=== PATIENT | female | born 1975 | race American Indian/Alaskan Native ===

== ENCOUNTER 2016-12-08 13:23 | Emergency (ER) | payer BC, OTHER ==
--- NOTE | 2016-12-08 14:11 | EDM.PDOC ---
ED HPI GENERAL MEDICAL PROBLEM - General Chief Complaint: Neurological Problem Stated Complaint: PAINS AND NUMBNESS IN LEFT ARM Time Seen by Provider: 12/08/16 13:42 Source of Information: Reports: Patient History Limitations: Reports: No limitations - History of Present Illness INITIAL COMMENTS - FREE TEXT/NARRATIVE: HISTORY AND PHYSICAL: History of present illness: Patient is a 41-year-old obese female who presents to the emergency department with left hand numbness and tingling. She states she woke up this morning feeling that her call hand was tingly and "pins and needles". She has also noticed as the day has gone on that her whole left arm is feeling heavy and achy , especially around her tricep area. She wonders if it may be is because she has been shaking her hand and arm a lot because of these sensations. She denies any weakness. When she touches her skin she can feel it. She denies any head or neck pain. No chronic history of neck problems. She has migraines but hasn't had issues about for a long time. She takes medications for her headache as needed and then Celexa but nothing else. She has been told her blood pressures that high in the past and was supposed to be taking hydrochlorothiazide but often forgets to take it and now is not taking it at all. No chest pain or shortness of breath. No abdominal pain nausea or vomiting. No weakness or numbness or tingling in the lower extremities. She thinks she might have a UTI complains of some mild achiness but other than that nothing is out of the ordinary. No facial numbness or tingling and no symptoms in her right arm. Review of systems: As per history of present illness and below otherwise all systems reviewed and negative. Past medical history: As per history of present illness and as reviewed below otherwise noncontributory. Surgical history: As per history of present illness and as reviewed below otherwise noncontributory. Social history: No reported history of drug or alcohol abuse. Family history: As per history of present illness and as reviewed below otherwise noncontributory. Physical exam: HEENT: Atraumatic, normocephalic, pupils reactive, negative for conjunctival pallor or scleral icterus, mucous membranes moist, throat clear, neck supple, nontender, trachea midline. Lungs: Clear to auscultation, breath sounds equal bilaterally, chest nontender. Heart: S1S2, regular, negative for clicks, rubs, or JVD. Abdomen: Soft, nondistended, nontender. Negative for masses or hepatosplenomegaly. Negative for costovertebral tenderness. Pelvis: Stable nontender. Genitourinary: Deferred. Rectal: Deferred. Extremities: Atraumatic, negative for cords or calf pain. Neurovascular unremarkable. Neuro: Awake, alert, oriented. Cranial nerves II through XII unremarkable. Cerebellum unremarkable. Motor and sensory unremarkable throughout. Exam nonfocal. Diagnostics: EKG, CT, CBC, CMP, UA Impression: Left arm parasthesia Plan: Patient has no neck pain and no headache. She has no focal weakness or sensory deficits. Her blood pressure lowered significantly and was equal in both arms. Her symptoms are subjective but have not improved since being in the ED. I do not think these symptoms are related to a stroke or TIA. She will follow up with her primary care for further evaluation or return here for any significant change or worsening of her symptoms. Definitive disposition and diagnosis as appropriate pending reevaluation and review of above. - Related Data Allergies Allergy/AdvReac Type Severity Reaction Status Date / Time sulfamethoxazole Allergy Hives Verified 12/08/16 13:34 [From Bactrim] trimethoprim [From Bactrim] Allergy Hives Verified 12/08/16 13:34 contrast dye Allergy Rash Uncoded 12/08/16 13:35 Home Meds: Home Meds Citalopram [Celexa] 20 mg PO DAILY 06/19/16 [History] Naproxen [Naproxen] 0 mg PO ASDIRECTED PRN 06/19/16 [History] Past Medical History [employer] History: Reports: , Other (see below) Other OB/BYN History: ovarian cysts Neurological History: Reports: Migraines Psychiatric History: Reports: Anxiety Social & Family History - Family History Family Medical History: Noncontributory - Tobacco Use Smoking Status *Q: Current Every Day Smoker Years of Tobacco use: 13 Packs/Tins Daily: 1 - Recreational Drug Use Recreational Drug Use: No ED ROS GENERAL - Review of Systems Review Of Systems: ROS reveals no pertinent complaints other than HPI. ED EXAM, GENERAL - Physical Exam Exam: See Below (See history of present illness) Course - Vital Signs Last Recorded V/S: Last Vital Signs Temp 37.7 C 12/08/16 13:23 Pulse 88 12/08/16 13:23 Resp 18 12/08/16 13:23 BP 175/97 H 12/08/16 13:23 Pulse Ox 98 12/08/16 13:23 - Orders/Labs/Meds Orders: Active Orders 24 hr Category Date Time Status CULTURE URINE [RM] Stat Lab 12/08/16 16:15 Uncollected Labs: Laboratory Tests 12/08/16 12/08/16 12/08/16 Range/Units 14:09 14:09 14:09 WBC 9.00 (4.0-11.0) K/uL RBC 4.26 L (4.30-5.90) M/uL Hgb 12.5 (12.0-16.0) g/dL Hct 37.9 (36.0-46.0) % MCV 89.0 (80.0-98.0) fL MCH 29.3 (27.0-32.0) pg MCHC 33.0 (31.0-37.0) g/dL RDW Std Deviation 41.0 (28.0-62.0) fl RDW Coeff of Ty 13 (11.0-15.0) % Plt Count 244 (150-400) K/uL MPV 10.00 (7.40-12.00) fL Neut % (Auto) 59.8 (48.0-80.0) % Lymph % (Auto) 31.3 (16.0-40.0) % Wise % (Auto) 6.3 (0.0-15.0) % Eos % (Auto) 2.4 (0.0-7.0) % Baso % (Auto) 0.2 (0.0-1.5) % Neut # (Auto) 5.4 (1.4-5.7) K/uL Lymph # (Auto) 2.8 H (0.6-2.4) K/uL Wise # (Auto) 0.6 (0.0-0.8) K/uL Eos # (Auto) 0.2 (0.0-0.7) K/uL Baso # (Auto) 0.0 (0.0-0.1) K/uL Nucleated RBC % 0.0 /100WBC Nucleated RBCs # 0 K/uL Sodium 137 (136-146) mmol/L Potassium 3.9 (3.5-5.1) mmol/L Chloride 107 (98-110) mmol/L Carbon Dioxide 21 (21-31) mmol/L BUN 13 (6.0-23.0) mg/dL Creatinine 0.7 (0.6-1.5) mg/dL Est Cr Clr Drug Dosing 97.09 mL/min Estimated GFR (MDRD) > 60.0 ml/min Glucose 100 (60-110) mg/dL Calcium 8.9 (8.8-10.8) mg/dL Total Bilirubin 0.2 (0.1-1.5) mg/dL AST 11 (5-40) IU/L ALT 10 (8-54) IU/L Alkaline Phosphatase 79 (40-150) Total Protein 7.2 (6.0-8.0) g/dL Albumin 3.7 (3.5-5.0) g/dL Globulin 3.5 (2.0-3.5) g/dL Albumin/Globulin Ratio 1.1 L (1.3-2.8) HCG, Qual NEGATIVE (NEG) Urine Color Urine Appearance Urine pH (5.0-8.0) Ur Specific [place] (1.001-1.035) Urine Protein (NEGATIVE) mg/dL Urine Glucose (UA) (NEGATIVE) mg/dL Urine Ketones (NEGATIVE) mg/dL Urine Occult Blood (NEGATIVE) Urine Nitrite (NEGATIVE) Urine Bilirubin (NEGATIVE) Urine Urobilinogen (<2.0) EU/dL Ur Leukocyte Esterase (NEGATIVE) Urine RBC (0-2/HPF) Urine WBC (0-5/HPF) Ur Epithelial Cells (NONE-FEW) Amorphous Sediment (NEGATIVE) Urine Bacteria (NEGATIVE) 12/08/16 Range/Units 15:00 WBC (4.0-11.0) K/uL RBC (4.30-5.90) M/uL Hgb (12.0-16.0) g/dL Hct (36.0-46.0) % MCV (80.0-98.0) fL MCH (27.0-32.0) pg MCHC (31.0-37.0) g/dL RDW Std Deviation (28.0-62.0) fl RDW Coeff of Ty (11.0-15.0) % Plt Count (150-400) K/uL MPV (7.40-12.00) fL Neut % (Auto) (48.0-80.0) % Lymph % (Auto) (16.0-40.0) % Wise % (Auto) (0.0-15.0) % Eos % (Auto) (0.0-7.0) % Baso % (Auto) (0.0-1.5) % Neut # (Auto) (1.4-5.7) K/uL Lymph # (Auto) (0.6-2.4) K/uL Wise # (Auto) (0.0-0.8) K/uL Eos # (Auto) (0.0-0.7) K/uL Baso # (Auto) (0.0-0.1) K/uL Nucleated RBC % /100WBC Nucleated RBCs # K/uL Sodium (136-146) mmol/L Potassium (3.5-5.1) mmol/L Chloride (98-110) mmol/L Carbon Dioxide (21-31) mmol/L BUN (6.0-23.0) mg/dL Creatinine (0.6-1.5) mg/dL Est Cr Clr Drug Dosing mL/min Estimated GFR (MDRD) ml/min Glucose (60-110) mg/dL Calcium (8.8-10.8) mg/dL Total Bilirubin (0.1-1.5) mg/dL AST (5-40) IU/L ALT (8-54) IU/L Alkaline Phosphatase (40-150) Total Protein (6.0-8.0) g/dL Albumin (3.5-5.0) g/dL Globulin (2.0-3.5) g/dL Albumin/Globulin Ratio (1.3-2.8) HCG, Qual (NEG) Urine Color YELLOW Urine Appearance SLT CLOUDY Urine pH 5.5 (5.0-8.0) Ur Specific [place] 1.020 (1.001-1.035) Urine Protein NEGATIVE (NEGATIVE) mg/dL Urine Glucose (UA) NEGATIVE (NEGATIVE) mg/dL Urine Ketones NEGATIVE (NEGATIVE) mg/dL Urine Occult Blood TRACE-INTACT (NEGATIVE) Urine Nitrite NEGATIVE (NEGATIVE) Urine Bilirubin NEGATIVE (NEGATIVE) Urine Urobilinogen 0.2 (<2.0) EU/dL Ur Leukocyte Esterase SMALL (NEGATIVE) Urine RBC 0-2 (0-2/HPF) Urine WBC 1-3 (0-5/HPF) Ur Epithelial Cells FEW (NONE-FEW) Amorphous Sediment FEW (NEGATIVE) Urine Bacteria FEW (NEGATIVE) Departure - Departure Time of Disposition: 16:16 Disposition: Home, Self-Care 01 Condition: good Clinical Impression: Arm paresthesia, left Referrals: PCP,None [Primary Care Provider] - Forms: ED Department Discharge Additional Instructions: The following information is given to patients seen in the emergency department who are being discharged to home. This information is to outline your options for follow-up care. We provide all patients seen in our emergency department with a follow-up referral. The need for follow-up, as well as the timing and circumstances, are variable depending upon the specifics of your emergency department visit. If you don't have a primary care physician on staff, we will provide you with a referral. We always advise you to contact your personal physician following an emergency department visit to inform them of the circumstance of the visit and for follow-up with them and/or the need for any referrals to a consulting specialist. The emergency department will also refer you to a specialist when appropriate. This referral assures that you have the opportunity for follow-up care with a specialist. All of these measure are taken in an effort to provide you with optimal care, which includes your follow-up. Under all circumstances we always encourage you to contact your private physician who remains a resource for coordinating your care. When calling for follow-up care, please make the office aware that this follow-up is from your recent emergency room visit. If for any reason you are refused follow-up, please contact the [facility] Emergency Department at and asked to speak to the emergency department charge nurse. [facility] [address] [place] [address] - My Orders Last 24 Hours: My Active Orders 12/08/16 16:15 CULTURE URINE [RM] Stat - Assessment/Plan Last 24 Hours: My Active Orders 12/08/16 16:15 CULTURE URINE [RM] Stat
[2016-12-08 14:56] LABS: CHLORIDE,CL 107 mmol/L (98-110); SODIUM,NA 137 mmol/L (136-146)
--- NOTE | 2016-12-08 16:05 | CT ---
EXAMINATION: CT cervical spine HISTORY: Pain COMPARISON: None TECHNIQUE: Axial CT images obtained through the cervical spine without contrast. Coronal and sagitta l reconstructions obtained. FINDINGS: There is reversal of the normal cervical lordosis, likely positional. The vertebral body h eights and disc spaces appear well-maintained. There is no fracture or dislocation. Bone mineralizat ion is normal. No bulky cervical lymphadenopathy. IMPRESSION: No acute cervical spinal abnormality.
[2016-12-08 16:28] VITALS: BP 137/70
== END 2016-12-08 16:27 | disposition home or self-care (01) ==
LOC: MW.ED 13:23
DX: R20.9 Unspecified disturbances of skin sensation (principal); F41.9 Anxiety disorder, unspecified; F17.210 Nicotine dependence, cigarettes, uncomplicated; Z88.2 Allergy status to sulfonamides; Z88.1 Allergy status to other antibiotic agents; Z91.041 Radiographic dye allergy status
CPT/HCPCS: 36415; 72125; 72125-26; 80053; 81001; 84703; 85025; 87086; 93005; 99282; 99284-25

== ENCOUNTER 2017-06-23 18:10 | Emergency (ER) | payer BC, OTHER ==
[2017-06-23] MEDS ORDERED: cefTRIAXone 1,000 MG in Lidocaine 1% 4 ML IM ONE (18:49)
[2017-06-23] MEDS ORDERED: Sodium Chloride 0.9% 2.5 ML Syringe FLUSH PRN ×2 (18:49→20:18)
--- NOTE | 2017-06-23 18:49 | EDM.PDOC ---
ED HPI GENERAL MEDICAL PROBLEM - General Chief Complaint: Genitourinary Problem Stated Complaint: BLADDER INFECTION Time Seen by Provider: 06/23/17 18:47 Source of Information: Reports: Patient History Limitations: Reports: No Limitations - History of Present Illness INITIAL COMMENTS - FREE TEXT/NARRATIVE: HISTORY AND PHYSICAL: []Patient was seen at [facility] on Wed. 4 days ago and placed on Cipro and Pyridium for her UTI History of Present Illness: []Patient states that she is feeling worse she's having chills feeling weaker her bladder doesn't empty Review of Systems: As per history of present illness and below otherwise all systems reviewed and negative. Past medical history: As per history of present illness and as reviewed below otherwise noncontributory. Surgical history: As per history of present illness and as reviewed below otherwise noncontributory. Social history: No reported history of drug or alcohol abuse. Family history: As per history of present illness and as reviewed below otherwise noncontributory. Physical exam: Alert and oriented female answering questions appropriately. HEENT: Atraumatic, normocehpalic, pupils reactive, negative for conjunctival pallor or scleral icterus, mucous membranes moist, throat clear, neck supple, nontender, trachea midline. Lungs: Clear to auscultation, breath sounds equal bilaterally, chest non tender. Heart: S1S2, regular, negative for clicks, rubs, or JVD. Abdomen: Soft, nondistended, nontender. Negative for masses or hepatossplenmegaly. Positive for costovertebral tenderness. On the right. Pelvis: Stable nontender. Genitourinary: Deferred. Rectal: Deferred Extremities: Atraumatic, negative for cords or calf pain. Neurovascular unremarkable. Neuro: Awake, alert, oriented. Cranial nerves II through XII unremarkable. Cerebellum unremarkable. Motor and sensory unremarkable throughout. Exam nonfocal. Patient was scanned post void half hour and was found to have 165 miles of urine in the bladder. Pain that she is having is more than what I would expect for pyelonephritis and UTI. Discussed with patient my concerns and she has agreed to a abdominal pelvis CT scan rule out kidney stones Discussed with patient and family that no kidney stones are present there is a nonspecific small 0.6 cm nodule to her right lower lung. Because she is a smoker would recommend 6 months to a year follow-up CT scan. Diagnostics: [UA urine culture] Therapeutics: [Rocephin IV] Levaquin 750 by mouth Impression: [Early pyelonephritis with a UTI Incomplete emptying with voiding] Plan: [Placed on Levaquin 750 daily 10] Definitive disposition and diagnosis as appropriate pending reevaluation and review of above. flank area Pain Score (Numeric/FACES): 6 - Related Data Allergies Allergy/AdvReac Type Severity Reaction Status Date / Time sulfamethoxazole Allergy Hives Verified 06/23/17 19:20 [From Bactrim] trimethoprim [From Bactrim] Allergy Hives Verified 06/23/17 19:20 contrast dye Allergy Rash Uncoded 06/23/17 19:20 Home Meds: Home Meds Citalopram [Celexa] 20 mg PO DAILY 06/19/16 [History] Naproxen [Naproxen] 0 mg PO ASDIRECTED PRN 06/19/16 [History] Past Medical History [employer] History: Reports: , Other (See Below) Other OB/BYN History: ovarian cysts Neurological History: Reports: Migraines Psychiatric History: Reports: Anxiety Social & Family History - Family History Family Medical History: Noncontributory - Tobacco Use Smoking Status *Q: Current Every Day Smoker Years of Tobacco use: 13 Packs/Tins Daily: 1 - Recreational Drug Use Recreational Drug Use: No ED ROS GENERAL - Review of Systems Review Of Systems: ROS reveals no pertinent complaints other than HPI. ED EXAM, GI/ABD - Physical Exam Exam: See Below (See dictation) Course - Vital Signs Last Recorded V/S: Last Vital Signs Temp 36.4 C 06/23/17 21:00 Pulse 95 06/23/17 21:00 Resp 16 06/23/17 21:00 BP 140/72 06/23/17 21:00 Pulse Ox 98 06/23/17 21:00 - Orders/Labs/Meds Orders: Active Orders 24 hr Category Date Time Status Abdomen Pelvis w Cont [CT] Stat Exams 06/23/17 20:15 Stop Req Abdomen Pelvis wo Cont [CT] Stat Exams 06/23/17 20:19 Taken CULTURE URINE [RM] Stat Lab 06/23/17 18:44 Received Sodium Chloride 0.9% [Saline Flush] Med 06/23/17 18:49 Active 10 ml FLUSH ASDIRECTED PRN Sodium Chloride 0.9% [Saline Flush] Med 06/23/17 20:18 Active 10 ml FLUSH ASDIRECTED PRN Sodium Chloride 0.9% [Saline Flush] Med 06/23/17 18:49 Active 2.5 ml FLUSH ASDIRECTED PRN Sodium Chloride 0.9% [Saline Flush] Med 06/23/17 20:18 Active 2.5 ml FLUSH ASDIRECTED PRN Saline Lock Insert [OM.PC] Stat Oth 06/23/17 18:49 Ordered Saline Lock Insert [OM.PC] Stat Oth 06/23/17 20:18 Ordered Medication Orders Sodium Chloride (Saline Flush) 10 ml FLUSH ASDIRECTED PRN PRN Reason: Keep Vein Open Last Admin: 06/23/17 20:31 Dose: 10 ml Admin: 06/23/17 19:09 Dose: 10 ml Sodium Chloride (Saline Flush) 2.5 ml FLUSH ASDIRECTED PRN PRN Reason: Keep Vein Open Last Admin: 06/23/17 20:32 Dose: 2.5 ml Sodium Chloride (Saline Flush) 10 ml FLUSH ASDIRECTED PRN PRN Reason: Keep Vein Open Last Admin: 06/23/17 20:31 Dose: 10 ml Sodium Chloride (Saline Flush) 2.5 ml FLUSH ASDIRECTED PRN PRN Reason: Keep Vein Open Last Admin: 06/23/17 20:32 Dose: 2.5 ml Labs: Laboratory Tests 06/23/17 06/23/17 Range/Units 18:44 18:44 Urine Color ORANGE Urine Appearance SLT CLOUDY Urine pH 6.5 (5.0-8.0) Ur Specific [place] 1.010 (1.001-1.035) Urine Protein 100 (NEGATIVE) mg/dL Urine Glucose (UA) 250 H (NEGATIVE) mg/dL Urine Ketones NEGATIVE (NEGATIVE) mg/dL Urine Occult Blood TRACE-INTACT (NEGATIVE) Urine Nitrite POSITIVE H (NEGATIVE) Urine Bilirubin SMALL H (NEGATIVE) Urine Ictotest POSITIVE Urine Urobilinogen >=8.0 H (<2.0) EU/dL Ur Leukocyte Esterase MODERATE (NEGATIVE) Urine RBC 8-12 (0-2/HPF) Urine WBC 1-3 (0-5/HPF) Ur Epithelial Cells FEW (NONE-FEW) Urine Bacteria 1+ H (NEGATIVE) Urine HCG, Qual NEGATIVE (NEGATIVE) Meds: Medications Generic Name Dose Route Start Last Admin Trade Name Gail PRN Reason Stop Dose Admin Sodium Chloride 10 ml 06/23/17 18:49 06/23/17 20:31 Saline Flush FLUSH 10 ml ASDIRECTED PRN Administration Keep Vein Open Sodium Chloride 2.5 ml 06/23/17 18:49 06/23/17 20:32 Saline Flush FLUSH 2.5 ml ASDIRECTED PRN Administration Keep Vein Open Sodium Chloride 10 ml 06/23/17 20:18 06/23/17 20:31 Saline Flush FLUSH 10 ml ASDIRECTED PRN Administration Keep Vein Open Sodium Chloride 2.5 ml 06/23/17 20:18 06/23/17 20:32 Saline Flush FLUSH 2.5 ml ASDIRECTED PRN Administration Keep Vein Open Discontinued Medications Generic Name Dose Route Start Last Admin Trade Name Gail PRN Reason Stop Dose Admin Ceftriaxone Sodium 1,000 mg/ 4 mls @ 4 mls/sec 06/23/17 18:49 06/23/17 19:07 Lidocaine HCl IM 06/23/17 18:50 4 mls/sec ONETIME ONE Administration Sodium Chloride 1,000 mls @ 999 mls/hr 06/23/17 20:18 06/23/17 20:30 Normal Saline IV 06/23/17 21:18 999 mls/hr STAT ONE Administration Ketorolac Tromethamine 30 mg 06/23/17 20:18 06/23/17 20:30 Toradol IVPUSH 06/23/17 20:19 30 mg ONETIME ONE Administration Departure - Departure Time of Disposition: 22:05 Disposition: Home, Self-Care 01 Condition: Good Clinical Impression: UTI, Urinary tract infectious disease, Pyelonephritis - Discharge Information Referrals: PCP,None [Primary Care Provider] - Forms: ED Department Discharge Additional Instructions: The following information is given to patients seen in the emergency department who are being discharged to home. This information is to outline your options for follow-up care. We provide all patients seen in our emergency department with a follow-up referral. The need for follow-up, as well as the timing and circumstances, are variable depending upon the specifics of your emergency department visit. If you don't have a primary care physician on staff, we will provide you with a referral. We always advise you to contact your personal physician following an emergency department visit to inform them of the circumstance of the visit and for follow-up with them and/or the need for any referrals to a consulting specialist. The emergency department will also refer you to a specialist when appropriate. This referral assures that you have the opportunity for followup care with a specialist. All of these measure are taken in an effort to provide you with optimal care, which includes your followup. Under all circumstances we always encourage you to contact your private physician who remains a resource for coordinating your care. When calling for followup care, please make the office aware that this follow-up is from your recent emergency room visit. If for any reason you are refused follow-up, please contact the [facility] emergency department at and asked to speak to the emergency department charge nurse. Prescription for Levaquin is being given 750 mg one daily [address] Alvarez on Sunday for follow up rx written for leviquin 750mg - 1 daily for 10 DAYS because you are a smoker I would recomend you repeat te CT for pulmonary nodule in 6 months to a year - My Orders Last 24 Hours: My Active Orders 06/23/17 18:44 CULTURE URINE [RM] Stat 06/23/17 18:49 Sodium Chloride 0.9% [Saline Flush] 10 ml FLUSH ASDIRECTED PRN Sodium Chloride 0.9% [Saline Flush] 2.5 ml FLUSH ASDIRECTED PRN Saline Lock Insert [OM.PC] Stat 06/23/17 20:15 Abdomen Pelvis w Cont [CT] Stat 06/23/17 20:18 Sodium Chloride 0.9% [Saline Flush] 10 ml FLUSH ASDIRECTED PRN Sodium Chloride 0.9% [Saline Flush] 2.5 ml FLUSH ASDIRECTED PRN Saline Lock Insert [OM.PC] Stat 06/23/17 20:19 Abdomen Pelvis wo Cont [CT] Stat - Assessment/Plan Last 24 Hours: My Active Orders 06/23/17 18:44 CULTURE URINE [RM] Stat 06/23/17 18:49 Sodium Chloride 0.9% [Saline Flush] 10 ml FLUSH ASDIRECTED PRN Sodium Chloride 0.9% [Saline Flush] 2.5 ml FLUSH ASDIRECTED PRN Saline Lock Insert [OM.PC] Stat 06/23/17 20:15 Abdomen Pelvis w Cont [CT] Stat 06/23/17 20:18 Sodium Chloride 0.9% [Saline Flush] 10 ml FLUSH ASDIRECTED PRN Sodium Chloride 0.9% [Saline Flush] 2.5 ml FLUSH ASDIRECTED PRN Saline Lock Insert [OM.PC] Stat 06/23/17 20:19 Abdomen Pelvis wo Cont [CT] Stat
[2017-06-23] MEDS: Sodium Chloride 0.9% 10 ML Syringe FLUSH PRN ×2 (19:09→20:31)
[2017-06-23] MEDS ORDERED: Sodium Chloride 0.9% 1,000 ML IV ONE (20:18)
[2017-06-23] MEDS ORDERED: Sodium Chloride 0.9% 10 ML Syringe FLUSH PRN (20:18)
[2017-06-23] MEDS ORDERED: Ketorolac 30 MG/ML SDV IVPUSH ONE (20:18)
[2017-06-23 22:29] VITALS: BP 136/65
--- NOTE | 2017-06-25 11:12 | CT ---
EXAM DATE: 06/23/17 PATIENT'S AGE: 42 Patient: LAKIA ORNELAS Facility: [place], [place] Site . Site : 1975 Study: CT Abdomen/Pelvis [id number]/7/2017 9:39:20 PM Ordering Physician: Doctor Gaines Final Report: INDICATION: Bilateral flank pain for 1 week TECHNIQUE: CT abdomen and pelvis without contrast. COMPARISON: None FINDINGS: Lower chest: 0.6 cm pulmonary nodule in the right lower lobe. Liver: Unremarkable. Spleen: Unremarkable. Pancreas: Unremarkable. Gallbladder and bile ducts: Status postcholecystectomy. Adrenal glands: Unremarkable. Kidneys: Unremarkable. No kidney or ureteral stones and no hydronephrosis. GI tract: There are a few scattered colonic diverticula. No evidence for diverticulosis. The appendix is not visualized. Vascular structures: Unremarkable. Lymph nodes: Unremarkable. Miscellaneous: There are shotty lymph nodes within the right lower quadrant mesentery with surrounding mesenteric fat stranding. No free fluid. No free air or significant free fluid. Pelvic Organs: Unremarkable. Bones: Unremarkable for age. IMPRESSION: There are findings suggestive of mesenteric adenitis involving the right lower quadrant mesentery. No evidence for bowel wall thickening or free air. No nephrolithiasis. Right lower lobe pulmonary nodule. Followup per Fleischner society guidelines recommended, as listed below. Status post cholecystectomy. FLEISCHNER SOCIETY GUIDELINES - SOLID NODULES: SINGLE LOW RISK - nodule less than 6 mm: No routine follow-up. - nodule 6-8 mm: CT at 6-12 months, then consider CT at 18-24 months. - nodule greater than 8 mm: Consider CT at 3 months, PET/CT or tissue sampling. SINGLE HIGH RISK - nodule less than 6 mm: Optional CT at 12 months. - nodule 6-8 mm: CT at 6-12 months, then CT at 18-24 months. - nodule greater than 8 mm: Consider CT at 3 months, PET/CT or tissue sampling. MULTIPLE LOW RISK - nodule less than 6 mm: No routine follow-up. - nodule 6-8 mm: CT at 3-6 months, then consider CT at 18-24 months. - nodule greater than 8 mm: CT at 3-6 months, then consider CT at 18-24 months. MULTIPLE HIGH RISK - nodule less than 6 mm: Optional CT at 12 months. - nodule 6-8 mm: CT at 3-6 months, then at 18-24 months. - nodule greater than 8 mm: CT at 3-6 months, then at 18-24 months. Please note that all CT scans at this facility use dose modulation, iterative reconstruction, and/or weight-based dosing when appropriate to reduce radiation dose to as low as reasonably achievable. Dictated by Lakia Brantley MD @ Jun 23 2017 9:50PM (Electronic Signature) Report Signed by Proxy. MTDD
== END 2017-06-23 22:28 | disposition home or self-care (01) ==
LOC: MW.ED 18:10
DX: N12 Tubulo-interstitial nephritis, not specified as acute or chronic (principal); N39.0 Urinary tract infection, site not specified; F17.210 Nicotine dependence, cigarettes, uncomplicated; Z88.2 Allergy status to sulfonamides; Z88.1 Allergy status to other antibiotic agents
CPT/HCPCS: 51798; 74176; 81001; 81025; 87086; 96361; 96372; 96374; 99284; J0696; J1885; J7040; 99283

== ENCOUNTER 2017-06-24 19:06 | Emergency (ER) | payer BC, OTHER ==
[2017-06-24] MEDS ORDERED: Sodium Chloride 0.9% 2.5 ML Syringe FLUSH PRN (19:42)
[2017-06-24] MEDS ORDERED: Ketorolac 15 MG/ML SDV IVPUSH ONE (19:42)
[2017-06-24] MEDS ORDERED: Sodium Chloride 0.9% 10 ML Syringe FLUSH PRN (19:42)
[2017-06-24] MEDS ORDERED: Sodium Chloride 0.9% 1,000 ML IV ONE (19:45)
--- NOTE | 2017-06-24 20:03 | EDM.PDOC ---
ED HPI GENERAL MEDICAL PROBLEM - General Chief Complaint: Abdominal Pain Stated Complaint: IN PAIN Time Seen by Provider: 06/24/17 19:07 Source of Information: Reports: Patient History Limitations: Reports: No Limitations - History of Present Illness INITIAL COMMENTS - FREE TEXT/NARRATIVE: HISTORY AND PHYSICAL: History of present illness: [42-year-old female with a past medical history of cholecystectomy previously told she had high blood pressure but then told she could stop her medicine for that, recent urinary tract infection treated with Cipro seen last night in our emergency department complaining of persistent urinary symptoms. Urinalysis continued to be consistent with infection and CT was done to rule out stone which was negative. Patient states she has worsening lower abdominal pain and she continued to feel ill so she now return to the emergency department for reevaluation. She has had some intermittent fevers. Review of systems: As per history of present illness and below otherwise all systems reviewed and negative. Past medical history: As per history of present illness and as reviewed below otherwise noncontributory. Surgical history: As per history of present illness and as reviewed below otherwise noncontributory. Social history: No reported history of drug or alcohol abuse. Family history: As per history of present illness and as reviewed below otherwise noncontributory. Physical exam: Well-appearing patient no acute distress clear lungs regular rhythm no tachycardia. Patient with diffuse lower abdominal tenderness without guarding or rebound. Normal bowel sounds. No skin changes. No CVA tenderness HEENT: Atraumatic, normocephalic, pupils reactive, negative for conjunctival pallor or scleral icterus, mucous membranes moist, throat clear, neck supple, nontender, trachea midline. Lungs: Clear to auscultation, breath sounds equal bilaterally, chest nontender. Heart: S1S2, regular, negative for clicks, rubs, or JVD. Abdomen: Soft, nondistended, as above. Negative for masses or hepatosplenomegaly. Negative for costovertebral tenderness. Pelvis: Stable nontender. Genitourinary: Deferred. Rectal: Deferred. Extremities: Atraumatic, negative for cords or calf pain. Neurovascular unremarkable. Neuro: Awake, alert, oriented. Cranial nerves II through XII unremarkable. Cerebellum unremarkable. Motor and sensory unremarkable throughout. Exam nonfocal. Diagnostics: [CT abdomen and pelvis pending Abdominal laboratory workup pending] Therapeutics: [Toradol IV as well as IV fluids administered] Impression: [] Plan: [Patient with recent UTI for which she is being treated with Cipro. Given persistent symptoms after 5 days suspect possible Cipro failure. Will switch to Keflex. Patient also with which she perceives as worsening lower abdominal pain since yesterday. CT scan pending to rule out the need for further treatment. If unremarkable will switch to Keflex, follow pending urine culture and patient will follow up with her own doctor tomorrow. She agrees with outpatient follow- up and strict return precautions will be given on reevaluation prior to discharge patient sitting the edge of her bed well- appearing no acute distress smiling and comfortable. she is aware of all findings and will follow-up with her doctor tomorrow Definitive disposition and diagnosis as appropriate pending reevaluation and review of above. Bilateral Lower Abdominal Pain Score (Numeric/FACES): 7 - Related Data Allergies Allergy/AdvReac Type Severity Reaction Status Date / Time sulfamethoxazole Allergy Hives Verified 06/24/17 19:26 [From Bactrim] trimethoprim [From Bactrim] Allergy Hives Verified 06/24/17 19:26 contrast dye Allergy Rash Uncoded 06/24/17 19:26 Home Meds: Home Meds Citalopram [Celexa] 20 mg PO DAILY 06/19/16 [History] Naproxen [Naproxen] 0 mg PO ASDIRECTED PRN 06/19/16 [History] Cephalexin [Keflex] 500 mg PO QID 10 Days capsule 06/24/17 [Rx] Ciprofloxacin [IJD: Ciprofloxacin HCl] 500 mg PO BID 06/24/17 [History] Past Medical History HEENT History: Reports: None Cardiovascular History: Reports: Afib Respiratory History: Reports: None Gastrointestinal History: Reports: None Genitourinary History: Reports: None VIDEO SPECIALIST History: Reports: Endometriosis, , Other (See Below) Other OB/BYN History: ovarian cysts Musculoskeletal History: Reports: None Neurological History: Reports: Migraines Psychiatric History: Reports: Anxiety Endocrine/Metabolic History: Reports: None Hematologic History: Reports: None Immunologic History: Reports: None Oncologic (Cancer) History: Reports: None Dermatologic History: Reports: None - Infectious Disease History Infectious Disease History: Reports: Chicken Pox - Past Surgical History GI Surgical History: Reports: Appendectomy, Cholecystectomy Female Surgical History: Reports: Other (See Below) Other Female Surgeries/Procedures: ovarian laparoscopy Social & Family History - Family History Family Medical History: Noncontributory - Tobacco Use Smoking Status *Q: Current Every Day Smoker Years of Tobacco use: 13 Packs/Tins Daily: 1 - Caffeine Use Caffeine Use: Reports: Soda - Recreational Drug Use Recreational Drug Use: No ED ROS GENERAL - Review of Systems Review Of Systems: See Below (History of present illness) ED EXAM, GI/ABD - Physical Exam Exam: See Below (History of present illness) Course - Vital Signs Last Recorded V/S: Last Vital Signs Temp 36.6 C 06/24/17 21:33 Pulse 78 06/24/17 21:33 Resp 18 06/24/17 21:33 BP 140/82 06/24/17 21:33 Pulse Ox 98 06/24/17 21:33 - Orders/Labs/Meds Orders: Active Orders 24 hr Category Date Time Status Abdomen Pelvis w Cont [CT] Stat Exams 06/24/17 19:42 Taken Sodium Chloride 0.9% [Saline Flush] Med 06/24/17 19:42 Active 10 ml FLUSH ASDIRECTED PRN Sodium Chloride 0.9% [Saline Flush] Med 06/24/17 19:42 Active 2.5 ml FLUSH ASDIRECTED PRN Peripheral IV Insertion Adult [OM.PC] Stat Oth 06/24/17 19:42 Ordered Medication Orders Sodium Chloride (Saline Flush) 10 ml FLUSH ASDIRECTED PRN PRN Reason: Keep Vein Open Sodium Chloride (Saline Flush) 2.5 ml FLUSH ASDIRECTED PRN PRN Reason: Keep Vein Open Labs: Laboratory Tests 06/24/17 06/24/17 Range/Units 20:08 20:08 WBC 3.44 L (4.0-11.0) K/uL RBC 4.13 L (4.30-5.90) M/uL Hgb 12.2 (12.0-16.0) g/dL Hct 36.5 (36.0-46.0) % MCV 88.4 (80.0-98.0) fL MCH 29.5 (27.0-32.0) pg MCHC 33.4 (31.0-37.0) g/dL RDW Std Deviation 41.7 (28.0-62.0) fl RDW Coeff of Ty 13 (11.0-15.0) % Plt Count 187 (150-400) K/uL MPV 9.80 (7.40-12.00) fL Neut % (Auto) 45.0 L (48.0-80.0) % Lymph % (Auto) 40.7 H (16.0-40.0) % [place] % (Auto) 13.7 (0.0-15.0) % Eos % (Auto) 0.6 (0.0-7.0) % Baso % (Auto) 0.0 (0.0-1.5) % Neut # (Auto) 1.6 (1.4-5.7) K/uL Lymph # (Auto) 1.4 (0.6-2.4) K/uL [place] # (Auto) 0.5 (0.0-0.8) K/uL Eos # (Auto) 0.0 (0.0-0.7) K/uL Baso # (Auto) 0.0 (0.0-0.1) K/uL Nucleated RBC % 0.0 /100WBC Nucleated RBCs # 0 K/uL Sodium 137 (136-146) mmol/L Potassium 3.4 L (3.5-5.1) mmol/L Chloride 108 (98-110) mmol/L Carbon Dioxide 21 (21-31) mmol/L BUN 8 (6.0-23.0) mg/dL Creatinine 0.7 (0.6-1.5) mg/dL Est Cr Clr Drug Dosing 96.13 mL/min Estimated GFR (MDRD) > 60.0 ml/min Glucose 92 (60-110) mg/dL Calcium 8.5 L (8.8-10.8) mg/dL Total Bilirubin 0.2 (0.1-1.5) mg/dL AST 11 (5-40) IU/L ALT 9 (8-54) IU/L Alkaline Phosphatase 76 (40-150) Total Protein 6.8 (6.0-8.0) g/dL Albumin 3.3 L (3.5-5.0) g/dL Globulin 3.5 (2.0-3.5) g/dL Albumin/Globulin Ratio 0.9 L (1.3-2.8) Lipase 16 (7-80) U/L Meds: Medications Generic Name Dose Route Start Last Admin Trade Name Gail PRN Reason Stop Dose Admin Sodium Chloride 10 ml 06/24/17 19:42 Saline Flush FLUSH ASDIRECTED PRN Keep Vein Open Sodium Chloride 2.5 ml 06/24/17 19:42 Saline Flush FLUSH ASDIRECTED PRN Keep Vein Open Discontinued Medications Generic Name Dose Route Start Last Admin Trade Name Gail PRN Reason Stop Dose Admin Cephalexin 500 mg 06/24/17 22:41 Keflex PO 06/24/17 22:42 ONETIME ONE Diphenhydramine HCl 25 mg 06/24/17 20:21 06/24/17 20:27 Benadryl IVPUSH 06/24/17 20:22 25 mg ONETIME ONE Administration Sodium Chloride 1,000 mls @ 999 mls/hr 06/24/17 19:45 06/24/17 20:09 Normal Saline IV 06/24/17 20:45 999 mls/hr STAT ONE Administration Iopamidol 100 ml 06/24/17 21:15 06/24/17 21:16 Isovue Multipack-370 (76%) IVPUSH 06/24/17 21:16 100 ml ONETIME STA Administration Ketorolac Tromethamine 15 mg 06/24/17 19:42 06/24/17 20:09 Toradol IVPUSH 06/24/17 19:43 15 mg ONETIME ONE Administration Methylprednisolone Sodium Succinate 125 mg 06/24/17 20:22 06/24/17 20:27 Solu-Medrol IVPUSH 06/24/17 20:23 125 mg ONETIME ONE Administration Departure - Departure Time of Disposition: 22:35 Disposition: Home, Self-Care 01 Condition: Good Clinical Impression: Mesenteric adenitis, Nodule of right lung, Hypertension, Abdominal pain Urinary tract infection Qualifiers: Urinary tract infection type: acute cystitis Hematuria presence: without hematuria Qualified Code(s): N30.00 - Acute cystitis without hematuria - Discharge Information Prescriptions: Cephalexin [Keflex] 500 mg PO QID 10 Days capsule Instructions: Abdominal Pain, Adult, [id number] Referrals: PCP,None [Primary Care Provider] - Forms: ED Department Discharge Additional Instructions: As discussed your antibiotic for urinary tract infection has been changed to Keflex because of your persistent symptoms on the previous antibiotic. finish Keflex as prescribed. The 6 mm lung nodule visualized on your previous imaging was shown to be calcified and consistent with a lung granuloma. Follow-up with your DrPrice to discuss this diagnosis and whether repeat imaging with another chest x-ray in the future is indicated. your blood pressure was elevated today with a systolicpressure of 160. Follow-up with your Dr. to discuss whether your hydrochlorothiazide should be reinitiated as treatment for essential hypertension. Your CAT scan showed that you have a small area of mesenteric adenitis. As we discussed this refers to inflammation of lymph nodes in the abdomen. This is a nonspecific finding and no further workup or treatment is indicated at this time. Take Motrin and Tylenol as needed for any discomfort and follow-up with your DrPrice for reevaluation in the next one to 2 days and to discuss the need for further workup as needed. Return immediately for new severe or worsening symptoms - My Orders Last 24 Hours: My Active Orders 06/24/17 19:42 Abdomen Pelvis w Cont [CT] Stat Sodium Chloride 0.9% [Saline Flush] 10 ml FLUSH ASDIRECTED PRN Sodium Chloride 0.9% [Saline Flush] 2.5 ml FLUSH ASDIRECTED PRN Peripheral IV Insertion Adult [OM.PC] Stat - Assessment/Plan Last 24 Hours: My Active Orders 06/24/17 19:42 Abdomen Pelvis w Cont [CT] Stat Sodium Chloride 0.9% [Saline Flush] 10 ml FLUSH ASDIRECTED PRN Sodium Chloride 0.9% [Saline Flush] 2.5 ml FLUSH ASDIRECTED PRN Peripheral IV Insertion Adult [OM.PC] Stat
[2017-06-24] MEDS ORDERED: diphenhydrAMINE 50 MG/ML SDV IVPUSH ONE (20:21)
[2017-06-24] MEDS ORDERED: methylPREDNISolone Sodium Succinate 125 MG/2 ML SDV IVPUSH ONE (20:22)
[2017-06-24 20:41] LABS: CHLORIDE,CL 108 mmol/L (98-110); SODIUM,NA 137 mmol/L (136-146)
[2017-06-24] MEDS ORDERED: Iopamidol 755 MG/ML 500 ML Multipack Bottle IVPUSH STA (21:15)
[2017-06-24] MEDS ORDERED: Cephalexin 500 MG Cap PO ONE (22:41)
[2017-06-24 22:58] VITALS: BP 140/76
--- NOTE | 2017-06-25 11:55 | CT ---
EXAM DATE: 06/24/17 PATIENT'S AGE: 42 Patient: DAXA ORNELAS Facility: [place], [place] Site . Site : 1975 Study: CT Abdomen/Pelvis [id number]/8/2017 9:14:56 PM Ordering Physician: Juan Alberto Villatoro Final Report: INDICATION: CONSISTENT RLQ ABD PAIN X1 WEEK, WORSENING, H/O APPENDECTOMY 2005, CHOLECYSTECTOMY 15+ YRS AGO HISTORY: Abdominal pain. COMPARISON: CT of the abdomen and pelvis 06/23/2017. TECHNIQUE: CT of the abdomen and pelvis. 100 cc of Isovue-300 IV. Coronal/sagittal reconstruction images. FINDINGS: Lung bases: There is no pleural or pericardial effusion. The heart size is normal. Calcified granuloma at the right lung base on image 17, series 201. This is stable from previous. There is no basilar pneumothorax. Abdomen/pelvis: No solid hepatic mass. Cholecystectomy. No dilation of intrahepatic biliary radicals. No perihepatic ascites. Spleen size is normal. No adrenal mass. No hydronephrosis. No perinephric inflammatory changes. No pancreatic mass or pancreatic duct dilation. Urinary bladder is normal. No suspicious adnexal mass. Uterine corpus is within normal limits. There is colonic diverticulosis. There are no findings for diverticulitis. There is a ventral wall abdominal hernia containing fat on image 59. No enteric compromise. There is fat stranding present within the right lower quadrant, which is similar to previous. This is seen best on series 201, image 88. No drainable fluid collection. No small bowel or colonic obstruction. No abdominal aortic aneurysm. Visceral artery branches are patent. No abdominal or pelvic lymphadenopathy by size criteria. The bone windows demonstrate no suspicious lytic or blastic bone lesions. The alignment is preserved. IMPRESSION: 1. Stable fat stranding in the right lower quadrant, with numerous nonenlarged mesenteric lymph nodes. As indicated previously, this could represent mesenteric adenitis. No associated enteric wall thickening or small bowel/ colonic obstruction. The region of fat stranding measures 3.5 x 3.0 cm in AP and transverse dimension. 2. No drainable fluid collection. 3. By report, the patient is post appendectomy. 4. Cholecystectomy. Normal caliber biliary tree. 5. Right lower lobe pulmonary nodule appears calcified, and consistent with a granuloma. Dictated by Scott Reynaga MD @ 06/24/2017 9:45:23 PM Dictated by: Scott Reynaga MD @ 06/24/2017 21:45:33 (Electronic Signature) Report Signed by Proxy. MTDD
== END 2017-06-24 22:59 | disposition home or self-care (01) ==
LOC: MW.ED 19:06
DX: I88.0 Nonspecific mesenteric lymphadenitis (principal); N30.00 Acute cystitis without hematuria; R91.1 Solitary pulmonary nodule; I10 Essential (primary) hypertension; F17.210 Nicotine dependence, cigarettes, uncomplicated; Z88.2 Allergy status to sulfonamides; Z88.1 Allergy status to other antibiotic agents; Z79.899 Other long term (current) drug therapy
CPT/HCPCS: 36415; 74177; 80053; 83690; 85025; 96361; 96374; 96375; 99284; A9270; J1200; J1885; J2930; J7040; Q9967; 99283

== ENCOUNTER 2019-04-25 18:20 | Emergency (ER) | payer BC ==
[2019-04-25] MEDS ORDERED: Ketorolac 60 MG/2 ML SDV IM ONE (18:52)
--- NOTE | 2019-04-25 18:59 | EDM.PDOC ---
ED HPI GENERAL MEDICAL PROBLEM - General Chief Complaint: Back Pain or Injury Stated Complaint: lower back pain Time Seen by Provider: 04/25/19 18:34 Source of Information: Reports: Patient History Limitations: Reports: No Limitations - History of Present Illness INITIAL COMMENTS - FREE TEXT/NARRATIVE: History of present illness: []Patient has had 3-5 years of sciatic pain and has been going to a chiropractor regularly gets her almost 3 weeks of relief. Someone had told her that she needs to see a doctor for this pain so she saw a physician at the [facility] who did plain film x-rays of her back and started her on prednisone, Flexeril and Tylenol. He took her off the Naprosyn while she is on the prednisone. She now has worse pain. Denies any incontinence, numbness or tingling or falls. She should try to follow up with her doctor however is not available. Review of systems: As per history of present illness and below otherwise all systems reviewed and negative. Past medical history: As per history of present illness and as reviewed below otherwise noncontributory. Surgical history: As per history of present illness and as reviewed below otherwise noncontributory. Social history: No reported history of drug or alcohol abuse. Family history: As per history of present illness and as reviewed below otherwise noncontributory. Physical exam: General: Well developed, well nourished in NAD HEENT: Atraumatic, normocephalic, pupils reactive, negative for conjunctival pallor or scleral icterus, mucous membranes moist, throat clear, neck supple, nontender, trachea midline. Lungs: Clear to auscultation, breath sounds equal bilaterally, chest nontender. Heart: S1S2, regular, negative for clicks, rubs, or JVD. Abdomen: NABS, Soft, nondistended, nontender. Negative for masses or hepatosplenomegaly. Negative for costovertebral tenderness. Pelvis: Stable nontender. Genitourinary: Deferred. Rectal: Deferred. Extremities: Atraumatic, negative for cords or calf pain. Neurovascular unremarkable. Neuro: Awake, alert, oriented. Cranial nerves II through XII unremarkable. Cerebellum unremarkable. Motor and sensory unremarkable throughout. Exam nonfocal. Skin:warm and dry Diagnostics: None Therapeutics: Toradol IM ED Course: Stable Impression: Chronic right-sided sciatica Prescriptions: None Plan: Ice pack 20 minutes at a time, walk frequently, go home Definitive disposition and diagnosis as appropriate pending reevaluation and review of above. Lower Back Pain Score (Numeric/FACES): 7 - Related Data Allergies Allergy/AdvReac Type Severity Reaction Status Date / Time sulfamethoxazole Allergy Hives Verified 04/25/19 18:32 [From Bactrim] trimethoprim [From Bactrim] Allergy Hives Verified 04/25/19 18:32 contrast dye Allergy Rash Uncoded 04/25/19 18:32 Home Meds: Home Meds Citalopram [Celexa] 20 mg PO DAILY 06/19/16 [History] Naproxen 0 mg PO ASDIRECTED PRN 06/19/16 [History] Cyclobenzaprine HCl 10 mg PO TID PRN 04/25/19 [History] hydroCHLOROthiazide [Hydrochlorothiazide] 25 mg PO DAILY 04/25/19 [History] predniSONE [Prednisone] 10 mg PO ASDIRECTED 04/25/19 [History] Past Medical History - Past Health History Medical/Surgical History: Denies Medical/Surgical History HEENT History: Reports: None Cardiovascular History: Reports: Afib Respiratory History: Reports: None Gastrointestinal History: Reports: None Genitourinary History: Reports: None CLINICAL 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 ANESTHESIOLOGIST History: Reports: Endometriosis, , Other (See Below) Other CLINICAL STAFF ANESTHESIOLOGIST History: ovarian cysts Musculoskeletal History: Reports: None Neurological History: Reports: Migraines Psychiatric History: Reports: Anxiety Endocrine/Metabolic History: Reports: None Hematologic History: Reports: None Immunologic History: Reports: None Oncologic (Cancer) History: Reports: None Dermatologic History: Reports: None - Infectious Disease History Infectious Disease History: Reports: Chicken Pox - Past Surgical History GI Surgical History: Reports: Appendectomy, Cholecystectomy Female Surgical History: Reports: Other (See Below) Other Female Surgeries/Procedures: ovarian laparoscopy Social & Family History - Family History Family Medical History: Noncontributory - Tobacco Use Smoking Status *Q: Never Smoker - Caffeine Use Caffeine Use: Reports: Soda - Recreational Drug Use Recreational Drug Use: No ED ROS GENERAL - Review of Systems Review Of Systems: See Below ED EXAM, GI/ABD - Physical Exam Exam: See Below (See history of present illness) Course - Vital Signs Last Recorded V/S: Last Vital Signs Temp 97.5 F 04/25/19 18:30 Pulse 111 H 04/25/19 18:30 Resp 18 04/25/19 18:30 BP 171/105 H 04/25/19 18:30 Pulse Ox 96 04/25/19 18:30 - Orders/Labs/Meds Meds: Medications Discontinued Medications Generic Name Dose Route Start Last Admin Trade Name Gail PRN Reason Stop Dose Admin Ketorolac Tromethamine 60 mg 04/25/19 18:52 Toradol IM 04/25/19 18:53 ONETIME ONE Departure - Departure Time of Disposition: 18:56 Disposition: Home, Self-Care 01 Condition: Good Clinical Impression: Chronic right-sided low back pain with sciatica Qualifiers: Sciatica laterality: sciatica of right side Qualified Code(s): M54.41 - Lumbago with sciatica, right side; G89.29 - Other chronic pain - Discharge Information *PRESCRIPTION DRUG MONITORING PROGRAM REVIEWED*: No *COPY OF PRESCRIPTION DRUG MONITORING REPORT IN PATIENT [place]: No Referrals: PCP,None [Primary Care Provider] - Additional Instructions: The following information is given to patients seen in the emergency department who are being discharged to home. This information is to outline your options for follow-up care. We provide all patients seen in our emergency department with a follow-up referral. The need for follow-up, as well as the timing and circumstances, are variable depending upon the specifics of your emergency department visit. If you don't have a primary care physician on staff, we will provide you with a referral. We always advise you to contact your personal physician following an emergency department visit to inform them of the circumstance of the visit and for follow-up with them and/or the need for any referrals to a consulting specialist. The emergency department will also refer you to a specialist when appropriate. This referral assures that you have the opportunity for follow-up care with a specialist. All of these measure are taken in an effort to provide you with optimal care, which includes your follow-up. Under all circumstances we always encourage you to contact your private physician who remains a resource for coordinating your care. When calling for follow-up care, please make the office aware that this follow-up is from your recent emergency room visit. If for any reason you are refused follow-up, please contact the [facility] Emergency Department at and asked to speak to the emergency department charge nurse. Ice pack 20 minutes at a time as frequently as possible, walk as much as possible Take meds as directed, follow up with your primary care physician, return to ER if symptoms worsen or change. [facility] [address] [place] [id number]
[2019-04-25 19:32] VITALS: BP 174/100; PULSE 89
== END 2019-04-25 19:32 | disposition home or self-care (01) ==
LOC: MW.ED 18:20
DX: M54.41 Lumbago with sciatica, right side (principal); Z90.49 Acquired absence of other specified parts of digestive tract; Z79.899 Other long term (current) drug therapy; Z88.1 Allergy status to other antibiotic agents
CPT/HCPCS: 96372; 99283; J1885

== ENCOUNTER 2019-05-29 13:03 | Emergency (ER) | payer BC ==
[2019-05-29] MEDS ORDERED: Sodium Chloride 0.9% 2.5 ML Syringe FLUSH PRN (13:12)
[2019-05-29] MEDS ORDERED: Sodium Chloride 0.9% 10 ML Syringe FLUSH PRN (13:12)
--- NOTE | 2019-05-29 13:52 | CR ---
INDICATION: Chest palpitations TECHNIQUE: Chest radiograph 1 view COMPARISON: None FINDINGS: Moderate degradation of image quality noted due to body habitus. Mediastinum: The mediastinum is normal in appearance. The heart silhouette is normal in size and morphology. Lung: Both lungs are unremarkable in appearance. No sign of pleural effusion seen. No pneumothorax is identified. IMPRESSION: 1. No acute cardiopulmonary disease is seen. Dictated by Frederick Sales MD @ 05/29/2019 1:49:33 PM Dictated by: Frederick Sales MD @ 05/29/2019 13:49:37 (Electronically Signed)
[2019-05-29 14:26] LABS: BLOOD UREA NITROGEN,BUN 20 mg/dL (7.0-18.0); CARBON DIOXIDE,CO2 28.3 mmol/L (21.0-32.0); CHLORIDE,CL 99 mmol/L (98-107); GLUCOSE RANDOM 98 mg/dL (74-106); POTASSIUM,K 3.1 mmol/L (3.5-5.1); SODIUM,NA 138 mmol/L (136-145)
[2019-05-29] MEDS ORDERED: Potassium Chloride 20 MEQ Tab.ER PO ONE (14:35)
--- NOTE | 2019-05-29 14:39 | EDM.PDOC ---
ED HPI GENERAL MEDICAL PROBLEM - General Chief Complaint: Chest Pain Stated Complaint: CHEST DISCOMFORT Time Seen by Provider: 05/29/19 13:07 Source of Information: Reports: Patient History Limitations: Reports: No Limitations - History of Present Illness INITIAL COMMENTS - FREE TEXT/NARRATIVE: History of present illness: []Patient has had intermittent chest palpitations since yesterday. Heart is skipping a beat and that every time it happens she feels like she has to burp. Chest pain, shortness of breath, dizziness or syncope. She feels excessively stressed with her mom having stage IV breast cancer, back pain and anxiety. Review of systems: As per history of present illness and below otherwise all systems reviewed and negative. Past medical history: As per history of present illness and as reviewed below otherwise noncontributory. Surgical history: As per history of present illness and as reviewed below otherwise noncontributory. Social history: No reported history of drug or alcohol abuse. Family history: As per history of present illness and as reviewed below otherwise noncontributory. Physical exam: General: Well developed, well nourished in NAD HEENT: Atraumatic, normocephalic, pupils reactive, negative for conjunctival pallor or scleral icterus, mucous membranes moist, throat clear, neck supple, nontender, trachea midline. Lungs: Clear to auscultation, breath sounds equal bilaterally, chest nontender. Heart: S1S2, regular, negative for clicks, rubs, or JVD. Abdomen: NABS, Soft, nondistended, nontender. Negative for masses or hepatosplenomegaly. Negative for costovertebral tenderness. Pelvis: Stable nontender. Genitourinary: Deferred. Rectal: Deferred. Extremities: Atraumatic, negative for cords or calf pain. Neurovascular unremarkable. Neuro: Awake, alert, oriented. Cranial nerves II through XII unremarkable. Cerebellum unremarkable. Motor and sensory unremarkable throughout. Exam nonfocal. Skin:warm and dry Diagnostics: CBC chemistry-calcium 3.1 EKG, monitor-showing intermittent PVCs correlating with her symptoms Therapeutics: Potassium ED Course: Stable Impression: Hypokalemia, PVCs Prescriptions: None Plan: follow up with your primary care physician, return to ER if symptoms worsen or change. Definitive disposition and diagnosis as appropriate pending reevaluation and review of above. Chest Pain Score (Numeric/FACES): 3 - Related Data Allergies Allergy/AdvReac Type Severity Reaction Status Date / Time sulfamethoxazole Allergy Hives Verified 05/29/19 13:11 [From Bactrim] trimethoprim [From Bactrim] Allergy Hives Verified 05/29/19 13:11 contrast dye Allergy Rash Uncoded 05/29/19 13:11 Home Meds: Home Meds Citalopram [Celexa] 20 mg PO DAILY 06/19/16 [History] Naproxen 0 mg PO ASDIRECTED PRN 06/19/16 [History] Cyclobenzaprine HCl 10 mg PO TID PRN 04/25/19 [History] hydroCHLOROthiazide [Hydrochlorothiazide] 25 mg PO DAILY 04/25/19 [History] Past Medical History - Past Health History Medical/Surgical History: Denies Medical/Surgical History HEENT History: Reports: None Cardiovascular History: Reports: None Respiratory History: Reports: None Gastrointestinal History: Reports: None Genitourinary History: Reports: None BUSINESS SYSTEMS LEAD History: Reports: Endometriosis, , Other (See Below) Other BUSINESS SYSTEMS LEAD History: ovarian cysts Musculoskeletal History: Reports: None Neurological History: Reports: Migraines Psychiatric History: Reports: Anxiety Endocrine/Metabolic History: Reports: None Hematologic History: Reports: None Immunologic History: Reports: None Oncologic (Cancer) History: Reports: None Dermatologic History: Reports: None - Infectious Disease History Infectious Disease History: Reports: Chicken Pox - Past Surgical History GI Surgical History: Reports: Appendectomy, Cholecystectomy Female Surgical History: Reports: Other (See Below) Other Female Surgeries/Procedures: ovarian laparoscopy Social & Family History - Family History Family Medical History: Noncontributory - Tobacco Use Smoking Status *Q: Current Every Day Smoker Years of Tobacco use: 15 Packs/Tins Daily: 0.5 - Caffeine Use Caffeine Use: Reports: Soda - Recreational Drug Use Recreational Drug Use: No ED ROS GENERAL - Review of Systems Review Of Systems: See Below ED EXAM, GENERAL - Physical Exam Exam: See Below Course - Vital Signs Last Recorded V/S: Last Vital Signs Temp Pulse 92 05/29/19 13:14 Resp 18 05/29/19 13:08 BP 158/80 H 05/29/19 13:14 Pulse Ox 99 05/29/19 13:08 - Orders/Labs/Meds Orders: Active Orders 24 hr Category Date Time Status Cardiac Monitoring [RC] . DIRECTED Care 05/29/19 13:12 Active EKG Documentation Completion [RC] STAT Care 05/29/19 13:12 Active Sodium Chloride 0.9% [Saline Flush] Med 05/29/19 13:12 Active 10 ml FLUSH ASDIRECTED PRN Sodium Chloride 0.9% [Saline Flush] Med 05/29/19 13:12 Active 2.5 ml FLUSH ASDIRECTED PRN Saline Lock Insert [OM.PC] Stat Oth 05/29/19 13:12 Ordered Medication Orders Sodium Chloride (Saline Flush) 10 ml FLUSH ASDIRECTED PRN PRN Reason: Keep Vein Open Sodium Chloride (Saline Flush) 2.5 ml FLUSH ASDIRECTED PRN PRN Reason: Keep Vein Open Labs: Laboratory Tests 05/29/19 05/29/19 Range/Units 13:45 13:45 WBC 9.24 (4.0-11.0) K/uL RBC 4.48 (4.30-5.90) M/uL Hgb 13.5 (12.0-16.0) g/dL Hct 40.0 (36.0-46.0) % MCV 89.3 (80.0-98.0) fL MCH 30.1 (27.0-32.0) pg MCHC 33.8 (31.0-37.0) g/dL RDW Std Deviation 43.4 (28.0-62.0) fl RDW Coeff of Ty 13 (11.0-15.0) % Plt Count 312 (150-400) K/uL MPV 9.70 (7.40-12.00) fL Neut % (Auto) 60.6 (48.0-80.0) % Lymph % (Auto) 31.1 (16.0-40.0) % Yell % (Auto) 6.6 (0.0-15.0) % Eos % (Auto) 1.6 (0.0-7.0) % Baso % (Auto) 0.1 (0.0-1.5) % Neut # (Auto) 5.6 (1.4-5.7) K/uL Lymph # (Auto) 2.9 H (0.6-2.4) K/uL Yell # (Auto) 0.6 (0.0-0.8) K/uL Eos # (Auto) 0.2 (0.0-0.7) K/uL Baso # (Auto) 0.0 (0.0-0.1) K/uL Nucleated RBC % 0.0 /100WBC Nucleated RBCs # 0 K/uL Sodium 138 (136-145) mmol/L Potassium 3.1 L (3.5-5.1) mmol/L Chloride 99 (98-107) mmol/L Carbon Dioxide 28.3 (21.0-32.0) mmol/L BUN 20 H (7.0-18.0) mg/dL Creatinine 0.8 (0.6-1.0) mg/dL Est Cr Clr Drug Dosing 83.27 mL/min Estimated GFR (MDRD) > 60.0 ml/min Glucose 98 (74-106) mg/dL Calcium 9.9 (8.5-10.1) mg/dL Total Bilirubin 0.2 (0.2-1.0) mg/dL AST 12 L (15-37) IU/L ALT 15 (14-63) IU/L Alkaline Phosphatase 83 (46-116) U/L Total Protein 7.7 (6.4-8.2) g/dL Albumin 3.5 (3.4-5.0) g/dL Globulin 4.2 H (2.6-4.0) g/dL Albumin/Globulin Ratio 0.8 L (0.9-1.6) Meds: Medications Generic Name Dose Route Start Last Admin Trade Name Freq PRN Reason Stop Dose Admin Sodium Chloride 10 ml 05/29/19 13:12 Saline Flush FLUSH ASDIRECTED PRN Keep Vein Open Sodium Chloride 2.5 ml 05/29/19 13:12 Saline Flush FLUSH ASDIRECTED PRN Keep Vein Open Discontinued Medications Generic Name Dose Route Start Last Admin Trade Name Freq PRN Reason Stop Dose Admin Potassium Chloride 40 meq 05/29/19 14:35 Klor-Con M20 PO 05/29/19 14:36 ONETIME ONE Departure - Departure Time of Disposition: 14:38 Disposition: Home, Self-Care 01 Condition: Good Clinical Impression: PVCs (premature ventricular contractions), Hypokalemia Referrals: PCP,Unobtain [Primary Care Provider] - Forms: ED Department Discharge Additional Instructions: The following information is given to patients seen in the emergency department who are being discharged to home. This information is to outline your options for follow-up care. We provide all patients seen in our emergency department with a follow-up referral. The need for follow-up, as well as the timing and circumstances, are variable depending upon the specifics of your emergency department visit. If you don't have a primary care physician on staff, we will provide you with a referral. We always advise you to contact your personal physician following an emergency department visit to inform them of the circumstance of the visit and for follow-up with them and/or the need for any referrals to a consulting specialist. The emergency department will also refer you to a specialist when appropriate. This referral assures that you have the opportunity for follow-up care with a specialist. All of these measure are taken in an effort to provide you with optimal care, which includes your follow-up. Under all circumstances we always encourage you to contact your private physician who remains a resource for coordinating your care. When calling for follow-up care, please make the office aware that this follow-up is from your recent emergency room visit. If for any reason you are refused follow-up, please contact the [facility] Emergency Department at and asked to speak to the emergency department charge nurse. follow up with your primary care physician, return to ER if symptoms worsen or change. [facility] Primary Care [address] [place] [id number] - My Orders Last 24 Hours: My Active Orders 05/29/19 13:12 Cardiac Monitoring [RC] . DIRECTED EKG Documentation Completion [RC] STAT Sodium Chloride 0.9% [Saline Flush] 10 ml FLUSH ASDIRECTED PRN Sodium Chloride 0.9% [Saline Flush] 2.5 ml FLUSH ASDIRECTED PRN Saline Lock Insert [OM.PC] Stat - Assessment/Plan Last 24 Hours: My Active Orders 05/29/19 13:12 Cardiac Monitoring [RC] . DIRECTED EKG Documentation Completion [RC] STAT Sodium Chloride 0.9% [Saline Flush] 10 ml FLUSH ASDIRECTED PRN Sodium Chloride 0.9% [Saline Flush] 2.5 ml FLUSH ASDIRECTED PRN Saline Lock Insert [OM.PC] Stat
[2019-05-29 15:12] VITALS: BP 147/81; PULSE 87
== END 2019-05-29 15:12 | disposition home or self-care (01) ==
LOC: MW.ED 13:03
DX: I49.3 Ventricular premature depolarization (principal); E87.6 Hypokalemia; F41.9 Anxiety disorder, unspecified; F17.210 Nicotine dependence, cigarettes, uncomplicated; Z88.2 Allergy status to sulfonamides; Z91.041 Radiographic dye allergy status; Z88.1 Allergy status to other antibiotic agents; Z79.899 Other long term (current) drug therapy
CPT/HCPCS: 36415; 71045; 80053; 85025; 93005; 99285; A9270

== ENCOUNTER 2019-07-15 20:32 | Emergency (ER) | payer BC ==
[2019-07-15] MEDS ORDERED: Sodium Chloride 0.9% 1,000 ML IV ONE (20:33)
--- NOTE | 2019-07-15 20:35 | EDM.PDOC ---
ED HPI GENERAL MEDICAL PROBLEM - General Stated Complaint: HEART PALPITATION Time Seen by Provider: 07/15/19 20:34 Source of Information: Reports: Patient - History of Present Illness INITIAL COMMENTS - FREE TEXT/NARRATIVE: HISTORY AND PHYSICAL: History of present illness: [Patient with history of anxiety history of PVC presents with palpitation], she is in no distress no chest pain no radiation arm neck or jaw no shortness breath or dizziness no fever nausea vomiting chills sweats no bowel or urine symptoms Symptoms began one hour prior review of systems: As per history of present illness and below otherwise all systems reviewed and negative. Past medical history: As per history of present illness and as reviewed below otherwise noncontributory. Surgical history: As per history of present illness and as reviewed below otherwise noncontributory. Social history: No reported history of drug or alcohol abuse. Family history: As per history of present illness and as reviewed below otherwise noncontributory. Physical exam: HEENT: Atraumatic, normocephalic, pupils reactive, negative for conjunctival pallor or scleral icterus, mucous membranes moist, throat clear, neck supple, nontender, trachea midline. Lungs: Clear to auscultation, breath sounds equal bilaterally, chest nontender. Heart: S1S2, regular, negative for clicks, rubs, or JVD. Abdomen: Soft, nondistended, nontender. Negative for masses or hepatosplenomegaly. Negative for costovertebral tenderness. Pelvis: Stable nontender. Genitourinary: Deferred. Rectal: Deferred. Extremities: Atraumatic, negative for cords or calf pain. Neurovascular unremarkable. Neuro: Awake, alert, oriented. Cranial nerves II through XII unremarkable. Cerebellum unremarkable. Motor and sensory unremarkable throughout. Exam nonfocal. Diagnostics: [CBC CMP UA troponin EKG Chest 1 view ] Therapeutics: [ normal saline ]K-Dur 20 milliequivalents by mouth now Increase potassium to 2 times daily for 3 days follow-up with primary care consider changing hydrochlorothiazide for another medication with primary Impression History of PVC Hypokalemia at 3.1 anxiety about health Chronic history of baseline Definitive disposition and diagnosis as appropriate pending reevaluation and review of above. - Related Data Allergies Allergy/AdvReac Type Severity Reaction Status Date / Time sulfamethoxazole Allergy Hives Verified 07/15/19 20:40 [From Bactrim] trimethoprim [From Bactrim] Allergy Hives Verified 07/15/19 20:40 contrast dye Allergy Rash Uncoded 07/15/19 20:40 Home Meds: Home Meds Citalopram [Celexa] 20 mg PO DAILY 06/19/16 [History] Naproxen 0 mg PO ASDIRECTED PRN 06/19/16 [History] Cyclobenzaprine HCl 10 mg PO TID PRN 04/25/19 [History] hydroCHLOROthiazide [Hydrochlorothiazide] 25 mg PO DAILY 04/25/19 [History] Potassium Chloride 20 meq PO DAILY 07/15/19 [History] Past Medical History - Past Health History Medical/Surgical History: Denies Medical/Surgical History HEENT History: Reports: None Cardiovascular History: Reports: None Respiratory History: Reports: None Gastrointestinal History: Reports: None Genitourinary History: Reports: None 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, , Other (See Below) Other CHIP APPLYING MACHINE TENDER History: ovarian cysts Musculoskeletal History: Reports: None Neurological History: Reports: Migraines Psychiatric History: Reports: Anxiety Endocrine/Metabolic History: Reports: None Hematologic History: Reports: None Immunologic History: Reports: None Oncologic (Cancer) History: Reports: None Dermatologic History: Reports: None - Infectious Disease History Infectious Disease History: Reports: Chicken Pox - Past Surgical History GI Surgical History: Reports: Appendectomy, Cholecystectomy Female Surgical History: Reports: Other (See Below) Other Female Surgeries/Procedures: ovarian laparoscopy Social & Family History - Family History Family Medical History: Noncontributory - Caffeine Use Caffeine Use: Reports: Soda ED ROS GENERAL - Review of Systems Review Of Systems: See Below ED EXAM, GENERAL - Physical Exam Exam: See Below Course - Vital Signs Last Recorded V/S: Last Vital Signs Temp 97.0 F 07/15/19 20:38 Pulse 114 H 07/15/19 20:38 Resp 18 07/15/19 20:38 BP 155/90 H 07/15/19 20:38 Pulse Ox 99 07/15/19 20:38 - Orders/Labs/Meds Orders: Active Orders 24 hr Category Date Time Status EKG Documentation Completion [RC] STAT Care 07/15/19 20:34 Active DRUG SCREEN, URINE [URCHEM] Stat Lab 07/15/19 20:34 Ordered UA RFX SACHIN AND CULT IF INDIC [URIN] Stat Lab 07/15/19 20:34 Ordered Sodium Chloride 0.9% [Normal Saline] 1,000 ml Med 07/15/19 20:33 Active IV STAT Medication Orders Sodium Chloride (Normal Saline) 1,000 mls @ 999 mls/hr IV STAT ONE Stop: 07/15/19 21:33 Last Admin: 07/15/19 20:45 Dose: 999 mls/hr Labs: Laboratory Tests 07/15/19 07/15/19 Range/Units 20:40 20:40 WBC 11.21 H (4.0-11.0) K/uL RBC 4.41 (4.30-5.90) M/uL Hgb 13.4 (12.0-16.0) g/dL Hct 39.5 (36.0-46.0) % MCV 89.6 (80.0-98.0) fL MCH 30.4 (27.0-32.0) pg MCHC 33.9 (31.0-37.0) g/dL RDW Std Deviation 42.4 (28.0-62.0) fl RDW Coeff of Ty 13 (11.0-15.0) % Plt Count 301 (150-400) K/uL MPV 10.10 (7.40-12.00) fL Neut % (Auto) 61.5 (48.0-80.0) % Lymph % (Auto) 29.7 (16.0-40.0) % [place] % (Auto) 6.8 (0.0-15.0) % Eos % (Auto) 1.8 (0.0-7.0) % Baso % (Auto) 0.2 (0.0-1.5) % Neut # (Auto) 6.9 H (1.4-5.7) K/uL Lymph # (Auto) 3.3 H (0.6-2.4) K/uL [place] # (Auto) 0.8 (0.0-0.8) K/uL Eos # (Auto) 0.2 (0.0-0.7) K/uL Baso # (Auto) 0.0 (0.0-0.1) K/uL Nucleated RBC % 0.0 /100WBC Nucleated RBCs # 0 K/uL Sodium 137 (136-145) mmol/L Potassium 3.1 L (3.5-5.1) mmol/L Chloride 100 (98-107) mmol/L Carbon Dioxide 25.3 (21.0-32.0) mmol/L BUN 15 (7.0-18.0) mg/dL Creatinine 0.8 (0.6-1.0) mg/dL Est Cr Clr Drug Dosing 82.43 mL/min Estimated GFR (MDRD) > 60.0 ml/min Glucose 116 H (74-106) mg/dL Calcium 9.0 (8.5-10.1) mg/dL Total Bilirubin 0.2 (0.2-1.0) mg/dL AST 10 L (15-37) IU/L ALT 12 L (14-63) IU/L Alkaline Phosphatase 89 (46-116) U/L Troponin I < 0.050 (0.000-0.056) ng/mL Total Protein 8.1 (6.4-8.2) g/dL Albumin 3.8 (3.4-5.0) g/dL Globulin 4.3 H (2.6-4.0) g/dL Albumin/Globulin Ratio 0.9 (0.9-1.6) Meds: Medications Generic Name Dose Route Start Last Admin Trade Name Freq PRN Reason Stop Dose Admin Sodium Chloride 1,000 mls @ 999 mls/hr 07/15/19 20:33 07/15/19 20:45 Normal Saline IV 07/15/19 21:33 999 mls/hr STAT ONE Administration Discontinued Medications Generic Name Dose Route Start Last Admin Trade Name Freq PRN Reason Stop Dose Admin Lorazepam 1 mg 07/15/19 20:51 Ativan IVPUSH 07/15/19 20:52 ONETIME ONE Potassium Chloride 20 meq 07/15/19 21:22 Klor-Con M20 PO 07/15/19 21:23 ONETIME ONE Departure - Departure Time of Disposition: 21:27 Disposition: Home, Self-Care 01 Condition: Good Clinical Impression: Hypokalemia - Discharge Information Referrals: PCP,None [Primary Care Provider] - Additional Instructions: Continue potassium 20 mEq twice daily for 3 days Follow-up with primary care and recheck potassium Consider blood pressure medication change with your primary care [facility] - Primary Care [address] [place] [id number] The following information is given to patients seen in the emergency department who are being discharged to home. This information is to outline your options for follow-up care. We provide all patients seen in our emergency department with a follow-up referral. The need for follow-up, as well as the timing and circumstances, are variable depending upon the specifics of your emergency department visit. If you don't have a primary care physician on staff, we will provide you with a referral. We always advise you to contact your personal physician following an emergency department visit to inform them of the circumstance of the visit and for follow-up with them and/or the need for any referrals to a consulting specialist. The emergency department will also refer you to a specialist when appropriate. This referral assures that you have the opportunity for follow-up care with a specialist. All of these measure are taken in an effort to provide you with optimal care, which includes your follow-up. Under all circumstances we always encourage you to contact your private physician who remains a resource for coordinating your care. When calling for follow-up care, please make the office aware that this follow-up is from your recent emergency room visit. If for any reason you are refused follow-up, please contact the [facility] emergency department at and asked to speak to the emergency department charge nurse. - My Orders Last 24 Hours: My Active Orders 07/15/19 20:33 Sodium Chloride 0.9% [Normal Saline] 1,000 ml IV STAT 07/15/19 20:34 EKG Documentation Completion [RC] STAT DRUG SCREEN, URINE [URCHEM] Stat UA RFX SACHIN AND CULT IF INDIC [URIN] Stat - Assessment/Plan Last 24 Hours: My Active Orders 07/15/19 20:33 Sodium Chloride 0.9% [Normal Saline] 1,000 ml IV STAT 07/15/19 20:34 EKG Documentation Completion [RC] STAT DRUG SCREEN, URINE [URCHEM] Stat UA RFX SACHIN AND CULT IF INDIC [URIN] Stat
[2019-07-15] MEDS ORDERED: LORazepam 2 MG/ML SDV IVPUSH ONE (20:51)
--- NOTE | 2019-07-15 21:04 | CR ---
INDICATION: heart palpitations TECHNIQUE: Chest 1 view. COMPARISON: None. FINDINGS: Cardiovascular and mediastinum: Heart size and vasculature are normal in caliber and appearance. Mediastinum is within normal limits. Lungs and pleural space: Lungs are clear. No sign of infiltrate or mass. No sign of pleural effusion. No pneumothorax. Bones and soft tissues: No significant findings. IMPRESSION: Unremarkable chest. Dictated by: Frederick Huynh MD @ 07/15/2019 21:01:47 (Electronically Signed)
[2019-07-15 21:11] LABS: BLOOD UREA NITROGEN,BUN 15 mg/dL (7.0-18.0); CARBON DIOXIDE,CO2 25.3 mmol/L (21.0-32.0); CHLORIDE,CL 100 mmol/L (98-107); GLUCOSE RANDOM 116 mg/dL (74-106); POTASSIUM,K 3.1 mmol/L (3.5-5.1); SODIUM,NA 137 mmol/L (136-145)
[2019-07-15] MEDS ORDERED: Potassium Chloride 20 MEQ Tab.ER PO ONE (21:22)
[2019-07-15 22:07] VITALS: BP 147/76; PULSE 85
== END 2019-07-15 22:08 | disposition home or self-care (01) ==
LOC: MW.ED 20:32
DX: E87.6 Hypokalemia (principal); F41.9 Anxiety disorder, unspecified; Z86.79 Personal history of other diseases of the circulatory system; Z88.1 Allergy status to other antibiotic agents; Z88.2 Allergy status to sulfonamides; Z91.041 Radiographic dye allergy status
CPT/HCPCS: 36415; 71045; 80053; 84484; 85025; 93005; 96360; 99285; A9270; J7040; 99283

== ENCOUNTER 2019-08-10 14:37 | Emergency (ER) | payer BC ==
[2019-08-10] MEDS ORDERED: Sodium Chloride 0.9% 10 ML SDV IV PRN (14:54)
[2019-08-10] MEDS ORDERED: Sodium Chloride 0.9% 10 ML Syringe FLUSH PRN (14:54)
[2019-08-10] MEDS ORDERED: Sodium Chloride 0.9% 2.5 ML Syringe FLUSH PRN (14:54)
--- NOTE | 2019-08-10 14:59 | EDM.PDOC ---
ED HPI GENERAL MEDICAL PROBLEM - General Chief Complaint: Cardiovascular Problem Stated Complaint: HEART PALPITATIONS Time Seen by Provider: 08/10/19 14:43 - History of Present Illness INITIAL COMMENTS - FREE TEXT/NARRATIVE: HISTORY AND PHYSICAL: History of present illness: Patient's 44-year-old female presents with a concern of palpitations she's been having these since May has been seen by her doctor and in the ER she was found in the low potassium at one point she underwent potassium supplementation her hydrochlorothiazide that she was on at the time was continued eventually both were stopped when she had a normal electrolyte panel 1 week prior. She has had thyroid studies were unremarkable and she is slated to see a corsetier in the near future. Patient was noted to have a unifocal PVC while on the monitor ER there but no runs and this was an isolated single event. Patient is a smoker. Review of systems: As per history of present illness and below otherwise all systems reviewed and negative. Past medical history: As per history of present illness and as reviewed below otherwise noncontributory. Surgical history: As per history of present illness and as reviewed below otherwise noncontributory. Social history: No reported history of drug or alcohol abuse. Family history: As per history of present illness and as reviewed below otherwise noncontributory. Physical exam: HEENT: Atraumatic, normocephalic, pupils reactive, negative for conjunctival pallor or scleral icterus, mucous membranes moist, throat clear, neck supple, nontender, trachea midline. Lungs: Clear to auscultation, breath sounds equal bilaterally, chest nontender. Heart: S1S2, regular, negative for clicks, rubs, or JVD. Abdomen: Soft, nondistended, nontender. Negative for masses or hepatosplenomegaly. Negative for costovertebral tenderness. Pelvis: Stable nontender. Genitourinary: Deferred. Rectal: Deferred. Extremities: Atraumatic, negative for cords or calf pain. Neurovascular unremarkable. Neuro: Awake, alert, oriented. Cranial nerves II through XII unremarkable. Cerebellum unremarkable. Motor and sensory unremarkable throughout. Exam nonfocal. Diagnostics: CBC CMP and troponin PT/INR chest x-ray EKG Therapeutics: teletypesetter monitor Impression: #1 palpitations Definitive disposition and diagnosis as appropriate pending reevaluation and review of above. Middle Back Pain Score (Numeric/FACES): 4 - Related Data Allergies Allergy/AdvReac Type Severity Reaction Status Date / Time sulfamethoxazole Allergy Hives Verified 08/10/19 14:46 [From Bactrim] trimethoprim [From Bactrim] Allergy Hives Verified 08/10/19 14:46 contrast dye Allergy Rash Uncoded 07/15/19 20:40 Home Meds: Home Meds Metoprolol Succinate [Toprol XL] 25 mg PO DAILY 08/10/19 [History] Past Medical History - Past Health History Medical/Surgical History: Denies Medical/Surgical History HEENT History: Reports: None Cardiovascular History: Reports: Other (See Below) Other Cardiovascular History: palpitations Respiratory History: Reports: None Gastrointestinal History: Reports: None Genitourinary History: Reports: None 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 HAND History: Reports: Endometriosis, , Other (See Below) Other SHAPER MACHINE HAND History: ovarian cysts Musculoskeletal History: Reports: None Neurological History: Reports: Migraines Psychiatric History: Reports: Anxiety Endocrine/Metabolic History: Reports: None Hematologic History: Reports: None Immunologic History: Reports: None Oncologic (Cancer) History: Reports: None Dermatologic History: Reports: None - Infectious Disease History Infectious Disease History: Reports: Chicken Pox - Past Surgical History GI Surgical History: Reports: Appendectomy, Cholecystectomy Female Surgical History: Reports: Other (See Below) Other Female Surgeries/Procedures: ovarian laparoscopy Social & Family History - Family History Family Medical History: Noncontributory - Tobacco Use Smoking Status *Q: Current Every Day Smoker Years of Tobacco use: 15 Packs/Tins Daily: 0.5 - Caffeine Use Caffeine Use: Reports: Soda - Recreational Drug Use Recreational Drug Use: No ED ROS GENERAL - Review of Systems Review Of Systems: Comprehensive ROS is negative, except as noted in HPI. ED EXAM, GENERAL - Physical Exam Exam: See Below (See dictation) Course - Vital Signs Last Recorded V/S: Last Vital Signs Temp 36.7 C 08/10/19 14:43 Pulse 94 08/10/19 14:43 Resp 18 08/10/19 14:43 BP 153/88 H 08/10/19 14:43 Pulse Ox 98 08/10/19 14:43 Departure - Departure Time of Disposition: 14:58 Disposition: Home, Self-Care 01 Condition: Good Clinical Impression: Palpitations Referrals: PCP,Unobtain [Primary Care Provider] - Additional Instructions: The following information is given to patients seen in the emergency department who are being discharged to home. This information is to outline your options for follow-up care. We provide all patients seen in our emergency department with a follow-up referral. The need for follow-up, as well as the timing and circumstances, are variable depending upon the specifics of your emergency department visit. If you don't have a primary care physician on staff, we will provide you with a referral. We always advise you to contact your personal physician following an emergency department visit to inform them of the circumstance of the visit and for follow-up with them and/or the need for any referrals to a consulting specialist. The emergency department will also refer you to a specialist when appropriate. This referral assures that you have the opportunity for followup care with a specialist. All of these measure are taken in an effort to provide you with optimal care, which includes your followup. Under all circumstances we always encourage you to contact your private physician who remains a resource for coordinating your care. When calling for followup care, please make the office aware that this follow-up is from your recent emergency room visit. If for any reason you are refused follow-up, please contact the [facility] emergency department at and asked to speak to the emergency department charge nurse. Continue current medicines stop smoking minimize caffeine antihistaminics decongestants as discussed follow-up cardiology as discussed and return as needed as discussed
[2019-08-10 15:22] LABS: BLOOD UREA NITROGEN,BUN 19 mg/dL (7.0-18.0); CARBON DIOXIDE,CO2 25.4 mmol/L (21.0-32.0); CHLORIDE,CL 104 mmol/L (98-107); GLUCOSE RANDOM 100 mg/dL (74-106); POTASSIUM,K 3.1 mmol/L (3.5-5.1); SODIUM,NA 139 mmol/L (136-145)
--- NOTE | 2019-08-10 15:38 | CR ---
HISTORY: Chest pain. TECHNIQUE: Portable frontal view the chest. COMPARISON: Chest x-ray 07/15/2019. FINDINGS: No airspace consolidation. No pleural effusion or pneumothorax. Pulmonary vasculature and cardiomediastinal silhouette are within normal limits. IMPRESSION: No cardiopulmonary abnormality. Dictated by Jt Arthur MD @ Aug 10 2019 3:37PM Signed by Dr. Jt Arthur @ Aug 10 2019 3:38PM
[2019-08-10 16:09] VITALS: BP 149/77; PULSE 68
== END 2019-08-10 16:07 | disposition home or self-care (01) ==
LOC: MW.ED 14:37
DX: R00.2 Palpitations (principal); F17.210 Nicotine dependence, cigarettes, uncomplicated; Z79.899 Other long term (current) drug therapy; Z91.041 Radiographic dye allergy status; Z88.1 Allergy status to other antibiotic agents; Z88.2 Allergy status to sulfonamides
CPT/HCPCS: 36415; 71045; 71045-26; 80053; 83735; 84484; 85025; 85610; 99285-25

== ENCOUNTER 2019-08-19 08:41 | Emergency (ER) | payer BC ==
[2019-08-19] MEDS ORDERED: Ondansetron 4 MG/2 ML SDV ONE (08:46)
[2019-08-19] MEDS ORDERED: Ondansetron 4 MG/2 ML SDV IVPUSH ONE (08:53)
[2019-08-19] MEDS ORDERED: Sodium Chloride 0.9% 2.5 ML Syringe FLUSH PRN (08:53)
[2019-08-19] MEDS ORDERED: Sodium Chloride 0.9% 10 ML Syringe FLUSH PRN (08:53)
[2019-08-19] MEDS ORDERED: Aspirin 81 MG Tab.Chew PO ONE (08:55)
[2019-08-19] MEDS ORDERED: Sodium Chloride 0.9% 1,000 ML IV ONE (08:55)
--- NOTE | 2019-08-19 08:59 | EDM.PDOC ---
ED HPI GENERAL MEDICAL PROBLEM - General Chief Complaint: Cardiovascular Problem Stated Complaint: HEART PALPATATIONS Time Seen by Provider: 08/19/19 08:47 - History of Present Illness INITIAL COMMENTS - FREE TEXT/NARRATIVE: HISTORY AND PHYSICAL: History of present illness: The patient is a 44-year-old female who has been seen in the emergency department every month for the last 5 months for chest pain and palpitations and who had a Zio monitor placed yesterday here at our hospital after seeing her primary at [facility] last week and presents with waking from sleep with palpitations irregular heartbeat sweating nausea and chest discomfort. She says that she has these palpitations and discomfort with irregular beats every day for the last 3-4 months and has been here in our emergency department for evaluation as well as with her provider. She is a smoker and had been drinking a lot of caffeine but has reduce caffeine intake. She says that last time she was here in our emergency department last month she was asleep and woke with similar symptoms and had a workup and was not admitted to the hospital. She says that her thyroid has been evaluated back in May and it was normal. She denies and is on oral control and does smoke cigarettes but denies drug use. She has no leg pain or swelling no abdominal complaints such as vomiting but did have an episode of diarrhea yesterday. She was nauseated on arrival here and diaphoretic and said the chest discomfort was diffuse and it feels like the beats and irregular beats that she is having are uncomfortable and hard. No upper respiratory symptoms. She does not take any medications prior to coming here. On my evaluation she does not really say there is one area of her chest discomfort but it is diffuse and it is more with the heart beating any regular beats that she is having. Again all of these symptoms are not new or different from her prior ED visits here. Review of systems: As per history of present illness and below otherwise all systems reviewed and negative. Past medical history: As per history of present illness and as reviewed below otherwise noncontributory. Surgical history: As per history of present illness and as reviewed below otherwise noncontributory. Social history: No reported history of drug or alcohol abuse. Family history: As per history of present illness and as reviewed below otherwise noncontributory. Physical exam: General: Well-developed well-nourished female who is nontoxic and vital signs were noted by me. Her heart rate on my evaluation varies from 89-105. She is no longer diaphoretic and she received Zofran prior to my arrival in the room. HEENT: Atraumatic, normocephalic, pupils reactive, negative for conjunctival pallor or scleral icterus, mucous membranes moist, throat clear, neck supple, nontender, trachea midline. As no thyromegaly or lymphadenopathy Lungs: Clear to auscultation, breath sounds equal bilaterally, chest nontender. Heart: S1S2, regular rhythm and slightly tachycardic rate on my evaluation as described above, no overt murmurs, negative for clicks, rubs, or JVD. Abdomen: Soft, nondistended, nontender. Negative for masses or hepatosplenomegaly. Negative for costovertebral tenderness. Pelvis: Stable nontender. Genitourinary: Deferred. Rectal: Deferred. Extremities: Atraumatic, negative for cords or calf pain. Neurovascular unremarkable. No pedal edema or leg asymmetry Neuro: Awake, alert, oriented. Cranial nerves II through XII unremarkable. Cerebellum unremarkable. Motor and sensory unremarkable throughout. Exam nonfocal. Diagnostics: EKG, which was compared to prior and unchanged, CBC CMP TSH troponin INR UA UCG CTA of the chest urine culture Therapeutics: IV IV fluids O2 monitor aspirin Zofran She does have a history of anxiety and depression. Currently in the ED the patient's vitals are stable and she is not tachycardic nor hypertensive. She is no longer nauseated and she has no chest discomfort or palpitations. She is aware of the need for the CTA of the chest in light of her risk factors. She states understanding and agreeable. She does state that she has gotten a rash in the past with contrast dye so I will give her Benadryl and solumedrol Patient is been stable here in the ED and sleeping. She has not been tachycardic but she tells me she is feeling he sees. I advised her to document all of today's events so that when they look at her monitor they will know and be able to correlate her symptoms of today with her monitor strips. I've also informed her of the right base lung nodule that needs follow-up in 3-6 months. She is also aware of the incidental UTI and I will place her on an antibiotic. Impression: Palpitations and chest pain, acute on chronic UTI Definitive disposition and diagnosis as appropriate pending reevaluation and review of above. chest Pain Score (Numeric/FACES): 4 - Related Data Allergies Allergy/AdvReac Type Severity Reaction Status Date / Time sulfamethoxazole Allergy Hives Verified 08/19/19 08:59 [From Bactrim] trimethoprim [From Bactrim] Allergy Hives Verified 08/19/19 08:59 contrast dye Allergy Rash Uncoded 08/19/19 08:59 Home Meds: Home Meds Metoprolol Succinate [Toprol XL] 25 mg PO DAILY 08/10/19 [History] Citalopram Hydrobromide [Celexa] 20 mg PO DAILY 08/19/19 [History] Cyclobenzaprine [Flexeril] 10 mg PO TID PRN 08/19/19 [History] Naproxen 500 mg PO DAILY 08/19/19 [History] Potassium Chloride [Klor-Con M20] 20 meq PO DAILY 08/19/19 [History] Past Medical History - Past Health History Medical/Surgical History: Denies Medical/Surgical History HEENT History: Reports: None Cardiovascular History: Reports: Other (See Below) Other Cardiovascular History: palpitations Respiratory History: Reports: None Gastrointestinal History: Reports: None Genitourinary History: Reports: None 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 DIRECTOR FINANCE History: Reports: Endometriosis, , Other (See Below) Other SENIOR DIRECTOR FINANCE History: ovarian cysts Musculoskeletal History: Reports: None Neurological History: Reports: Migraines Psychiatric History: Reports: Anxiety Endocrine/Metabolic History: Reports: None Hematologic History: Reports: None Immunologic History: Reports: None Oncologic (Cancer) History: Reports: None Dermatologic History: Reports: None - Infectious Disease History Infectious Disease History: Reports: Chicken Pox - Past Surgical History GI Surgical History: Reports: Appendectomy, Cholecystectomy Female Surgical History: Reports: Other (See Below) Other Female Surgeries/Procedures: ovarian laparoscopy Social & Family History - Family History Family Medical History: Noncontributory - Caffeine Use Caffeine Use: Reports: Soda ED ROS GENERAL - Review of Systems Review Of Systems: Comprehensive ROS is negative, except as noted in HPI. ED EXAM, GENERAL - Physical Exam Exam: See Below (See dictation) Course - Vital Signs Last Recorded V/S: Last Vital Signs Temp 37.0 C 08/19/19 11:40 Pulse 83 08/19/19 11:40 Resp 16 08/19/19 11:40 BP 148/77 H 08/19/19 11:40 Pulse Ox 96 08/19/19 11:40 - Orders/Labs/Meds Orders: Active Orders 24 hr Category Date Time Status Cardiac Monitoring [RC] . DIRECTED Care 08/19/19 08:53 Active EKG Documentation Completion [RC] STAT Care 08/19/19 08:53 Active Oxygen Therapy, ED [RC] ASDIRECTED Care 08/19/19 08:53 Active Pulse Oximetry [RC] ASDIRECTED Care 08/19/19 08:54 Active CULTURE URINE [RM] Stat Lab 08/19/19 09:58 Received Sodium Chloride 0.9% [Saline Flush] Med 08/19/19 08:53 Active 10 ml FLUSH ASDIRECTED PRN Sodium Chloride 0.9% [Saline Flush] Med 08/19/19 08:53 Active 2.5 ml FLUSH ASDIRECTED PRN Saline Lock Insert [OM.PC] Stat Oth 08/19/19 08:53 Ordered Medication Orders Sodium Chloride (Saline Flush) 10 ml FLUSH ASDIRECTED PRN PRN Reason: Keep Vein Open Sodium Chloride (Saline Flush) 2.5 ml FLUSH ASDIRECTED PRN PRN Reason: Keep Vein Open Labs: Laboratory Tests 08/19/19 08/19/19 08/19/19 Range/Units 08:50 08:50 08:50 WBC 11.56 H (4.0-11.0) K/uL RBC 4.45 (4.30-5.90) M/uL Hgb 13.6 (12.0-16.0) g/dL Hct 39.4 (36.0-46.0) % MCV 88.5 (80.0-98.0) fL MCH 30.6 (27.0-32.0) pg MCHC 34.5 (31.0-37.0) g/dL RDW Std Deviation 39.7 (28.0-62.0) fl RDW Coeff of Ty 13 (11.0-15.0) % Plt Count 312 (150-400) K/uL MPV 9.80 (7.40-12.00) fL Neut % (Auto) 74.9 (48.0-80.0) % Lymph % (Auto) 19.0 (16.0-40.0) % [place] % (Auto) 4.3 (0.0-15.0) % Eos % (Auto) 1.7 (0.0-7.0) % Baso % (Auto) 0.1 (0.0-1.5) % Neut # (Auto) 8.7 H (1.4-5.7) K/uL Lymph # (Auto) 2.2 (0.6-2.4) K/uL [place] # (Auto) 0.5 (0.0-0.8) K/uL Eos # (Auto) 0.2 (0.0-0.7) K/uL Baso # (Auto) 0.0 (0.0-0.1) K/uL INR 0.93 Sodium 138 (136-145) mmol/L Potassium 3.5 (3.5-5.1) mmol/L Chloride 103 (98-107) mmol/L Carbon Dioxide 22.3 (21.0-32.0) mmol/L BUN 15 (7.0-18.0) mg/dL Creatinine 0.7 (0.6-1.0) mg/dL Est Cr Clr Drug Dosing 94.21 mL/min Estimated GFR (MDRD) > 60.0 ml/min Glucose 93 (74-106) mg/dL Calcium 8.3 L (8.5-10.1) mg/dL Total Bilirubin 0.3 (0.2-1.0) mg/dL AST 11 L (15-37) IU/L ALT 12 L (14-63) IU/L Alkaline Phosphatase 85 (46-116) U/L Troponin I < 0.050 (0.000-0.056) ng/mL Total Protein 7.8 (6.4-8.2) g/dL Albumin 3.6 (3.4-5.0) g/dL Globulin 4.2 H (2.6-4.0) g/dL Albumin/Globulin Ratio 0.9 (0.9-1.6) TSH 3rd Generation 3.79 H (0.36-3.74) uIU/mL Urine Color Urine Appearance Urine pH (5.0-8.0) Ur Specific [place] (1.001-1.035) Urine Protein (NEGATIVE) mg/dL Urine Glucose (UA) (NEGATIVE) mg/dL Urine Ketones (NEGATIVE) mg/dL Urine Occult Blood (NEGATIVE) Urine Nitrite (NEGATIVE) Urine Bilirubin (NEGATIVE) Urine Urobilinogen (<2.0) EU/dL Ur Leukocyte Esterase (NEGATIVE) Urine RBC (0-2/HPF) Urine WBC (0-5/HPF) Ur Epithelial Cells (NONE-FEW) Amorphous Sediment (NEGATIVE) Urine Bacteria (NEGATIVE) Urine Mucus (NONE-MOD) Urine HCG, Qual (NEGATIVE) 08/19/19 08/19/19 Range/Units 09:58 09:58 WBC (4.0-11.0) K/uL RBC (4.30-5.90) M/uL Hgb (12.0-16.0) g/dL Hct (36.0-46.0) % MCV (80.0-98.0) fL MCH (27.0-32.0) pg MCHC (31.0-37.0) g/dL RDW Std Deviation (28.0-62.0) fl RDW Coeff of Ty (11.0-15.0) % Plt Count (150-400) K/uL MPV (7.40-12.00) fL Neut % (Auto) (48.0-80.0) % Lymph % (Auto) (16.0-40.0) % [place] % (Auto) (0.0-15.0) % Eos % (Auto) (0.0-7.0) % Baso % (Auto) (0.0-1.5) % Neut # (Auto) (1.4-5.7) K/uL Lymph # (Auto) (0.6-2.4) K/uL [place] # (Auto) (0.0-0.8) K/uL Eos # (Auto) (0.0-0.7) K/uL Baso # (Auto) (0.0-0.1) K/uL INR Sodium (136-145) mmol/L Potassium (3.5-5.1) mmol/L Chloride (98-107) mmol/L Carbon Dioxide (21.0-32.0) mmol/L BUN (7.0-18.0) mg/dL Creatinine (0.6-1.0) mg/dL Est Cr Clr Drug Dosing mL/min Estimated GFR (MDRD) ml/min Glucose (74-106) mg/dL Calcium (8.5-10.1) mg/dL Total Bilirubin (0.2-1.0) mg/dL AST (15-37) IU/L ALT (14-63) IU/L Alkaline Phosphatase (46-116) U/L Troponin I (0.000-0.056) ng/mL Total Protein (6.4-8.2) g/dL Albumin (3.4-5.0) g/dL Globulin (2.6-4.0) g/dL Albumin/Globulin Ratio (0.9-1.6) TSH 3rd Generation (0.36-3.74) uIU/mL Urine Color YELLOW Urine Appearance SLT CLOUDY Urine pH 6.0 (5.0-8.0) Ur Specific [place] 1.015 (1.001-1.035) Urine Protein NEGATIVE (NEGATIVE) mg/dL Urine Glucose (UA) NEGATIVE (NEGATIVE) mg/dL Urine Ketones NEGATIVE (NEGATIVE) mg/dL Urine Occult Blood TRACE-INTACT H (NEGATIVE) Urine Nitrite NEGATIVE (NEGATIVE) Urine Bilirubin NEGATIVE (NEGATIVE) Urine Urobilinogen 0.2 (<2.0) EU/dL Ur Leukocyte Esterase LARGE H (NEGATIVE) Urine RBC 0-2 (0-2/HPF) Urine WBC 5-10 (0-5/HPF) Ur Epithelial Cells FEW (NONE-FEW) Amorphous Sediment LIGHT (NEGATIVE) Urine Bacteria 1+ H (NEGATIVE) Urine Mucus LIGHT (NONE-MOD) Urine HCG, Qual NEGATIVE (NEGATIVE) Meds: Medications Generic Name Dose Route Start Last Admin Trade Name Freq PRN Reason Stop Dose Admin Sodium Chloride 10 ml 08/19/19 08:53 Saline Flush FLUSH ASDIRECTED PRN Keep Vein Open Sodium Chloride 2.5 ml 08/19/19 08:53 Saline Flush FLUSH ASDIRECTED PRN Keep Vein Open Discontinued Medications Generic Name Dose Route Start Last Admin Trade Name Freq PRN Reason Stop Dose Admin Aspirin 324 mg 08/19/19 08:55 08/19/19 09:27 Aspirin PO 08/19/19 08:56 324 mg ONETIME ONE Administration Diphenhydramine HCl 50 mg 08/19/19 10:18 08/19/19 10:32 Benadryl IVPUSH 08/19/19 10:19 50 mg ONETIME ONE Administration Sodium Chloride 1,000 mls @ 999 mls/hr 08/19/19 08:55 08/19/19 09:27 Normal Saline IV 08/19/19 09:55 999 mls/hr STAT ONE Administration Iopamidol 50 ml 08/19/19 11:20 08/19/19 11:23 Isovue Multipack-370 (76%) IVPUSH 08/19/19 11:21 50 ml ONETIME STA Administration Methylprednisolone Sodium Succinate 62.5 mg 08/19/19 10:18 08/19/19 10:32 Solu-Medrol IVPUSH 08/19/19 10:19 62.5 mg ONETIME ONE Administration Ondansetron HCl Confirm 08/19/19 08:46 08/19/19 08:53 Zofran Administered 08/19/19 08:47 Not Given Dose 4 mg .ROUTE .STK-MED ONE Ondansetron HCl 4 mg 08/19/19 08:53 08/19/19 08:54 Zofran IVPUSH 08/19/19 08:54 4 mg ONETIME ONE Administration Departure - Departure Time of Disposition: 12:29 Disposition: Home, Self-Care 01 Condition: Good Clinical Impression: Palpitations UTI (urinary tract infection) Qualifiers: Urinary tract infection type: site unspecified Hematuria presence: without hematuria Qualified Code(s): N39.0 - Urinary tract infection, site not specified Referrals: PCP,Unobtain [Primary Care Provider] - Forms: ED Department Discharge Additional Instructions: The following information is given to patients seen in the emergency department who are being discharged to home. This information is to outline your options for follow-up care. We provide all patients seen in our emergency department with a follow-up referral. The need for follow-up, as well as the timing and circumstances, are variable depending upon the specifics of your emergency department visit. If you don't have a primary care physician on staff, we will provide you with a referral. We always advise you to contact your personal physician following an emergency department visit to inform them of the circumstance of the visit and for follow-up with them and/or the need for any referrals to a consulting specialist. The emergency department will also refer you to a specialist when appropriate. This referral assures that you have the opportunity for followup care with a specialist. All of these measure are taken in an effort to provide you with optimal care, which includes your followup. Under all circumstances we always encourage you to contact your private physician who remains a resource for coordinating your care. When calling for followup care, please make the office aware that this follow-up is from your recent emergency room visit. If for any reason you are refused follow-up, please contact the [facility] emergency department at and ask to speak to the emergency department charge nurse. [facility] Primary care- [place] [address] Please discuss today's events with your provider at [facility] and continue to document all the symptoms you're having so that he can be correlated with your heart monitor. Please continue to take her potassium supplementation and watch her diet as we discussed. Reduce and/or stop smoking. Please take antibiotics as directed for UTI and also give follow-up with your provider in the clinic for the lung nodule as we discussed. Follow-up can occur in 3-6 months. Return to ER as needed and as discussed - My Orders Last 24 Hours: My Active Orders 08/19/19 08:53 Cardiac Monitoring [RC] . DIRECTED EKG Documentation Completion [RC] STAT Oxygen Therapy, ED [RC] ASDIRECTED Sodium Chloride 0.9% [Saline Flush] 10 ml FLUSH ASDIRECTED PRN Sodium Chloride 0.9% [Saline Flush] 2.5 ml FLUSH ASDIRECTED PRN Saline Lock Insert [OM.PC] Stat 08/19/19 08:54 Pulse Oximetry [RC] ASDIRECTED 08/19/19 09:58 CULTURE URINE [RM] Stat - Assessment/Plan Last 24 Hours: My Active Orders 08/19/19 08:53 Cardiac Monitoring [RC] . DIRECTED EKG Documentation Completion [RC] STAT Oxygen Therapy, ED [RC] ASDIRECTED Sodium Chloride 0.9% [Saline Flush] 10 ml FLUSH ASDIRECTED PRN Sodium Chloride 0.9% [Saline Flush] 2.5 ml FLUSH ASDIRECTED PRN Saline Lock Insert [OM.PC] Stat 08/19/19 08:54 Pulse Oximetry [RC] ASDIRECTED 08/19/19 09:58 CULTURE URINE [RM] Stat
[2019-08-19 09:39] LABS: CHLORIDE,CL 103 mmol/L (98-107); GLUCOSE RANDOM 93 mg/dL (74-106); POTASSIUM,K 3.5 mmol/L (3.5-5.1)
[2019-08-19 10:06] LABS: BLOOD UREA NITROGEN,BUN 15 mg/dL (7.0-18.0); CARBON DIOXIDE,CO2 22.3 mmol/L (21.0-32.0); SODIUM,NA 138 mmol/L (136-145)
[2019-08-19] MEDS ORDERED: diphenhydrAMINE 50 MG/ML SDV IVPUSH ONE (10:18)
[2019-08-19] MEDS ORDERED: methylPREDNISolone Sodium Succinate 125 MG/2 ML SDV IVPUSH ONE (10:18)
[2019-08-19] MEDS ORDERED: Iopamidol 755 MG/ML 500 ML Multipack Bottle IVPUSH STA (11:20)
--- NOTE | 2019-08-19 12:21 | CT ---
CT chest Technique: Multiple axial sections through the chest were obtained. Intravenous contrast was utilized. Study performed as a pulmonary angiogram protocol. Findings: Pulmonary arteries are not optimally opacified. No filling defects are seen within the main or segmental branches to indicate pulmonary emboli. Smaller subsegmental pulmonary emboli could be missed. Aorta shows no aneurysm. No mediastinal adenopathy is seen. Heart size slightly prominent. Upper visualized abdominal structures appear within normal limits. Surgical clips are seen from prior cholecystectomy. Lung window settings were reviewed. No acute parenchymal change is seen. Nodule is noted within the right lung base measuring 9 mm. No additional nodule is seen. Bone window settings were reviewed. No acute osseous abnormality is appreciated. Impression: 1. Less than optimal opacification of the pulmonary arteries. Nothing is seen to indicate pulmonary emboli within the main or segmental branches. Smaller subsegmental pulmonary emboli could be missed. 2. A 9 mm nodule within the right lung base. No previous studies available to determine stability of this finding. Recommend repeat noncontrast chest CT study in three months. This would occur in November 2019. 3. Nothing acute is otherwise seen on CT study of the chest. Diagnostic code #9 This report was dictated in [employer] [facility]
[2019-08-19 12:43] VITALS: BP 145/81; PULSE 82
== END 2019-08-19 12:57 | disposition home or self-care (01) ==
LOC: MW.ED 08:41
DX: R00.2 Palpitations (principal); N39.0 Urinary tract infection, site not specified; F41.9 Anxiety disorder, unspecified; Z88.2 Allergy status to sulfonamides; Z88.1 Allergy status to other antibiotic agents; Z91.041 Radiographic dye allergy status; Z79.899 Other long term (current) drug therapy
CPT/HCPCS: 36415; 71275; 80053; 81001; 81025; 84443; 84484; 85025; 85610; 87086; 93005; 96361; 96374; 96375; 99285; A9270; J1200; J2405; J2930; J7030; Q9967; 99284

== ENCOUNTER 2019-11-09 13:30 | Emergency (ER) | payer BC, OTHER ==
--- NOTE | 2019-11-09 13:49 | EDM.PDOC ---
ED HPI GENERAL MEDICAL PROBLEM - General Chief Complaint: Skin Complaint Stated Complaint: RASH ALL OVER BODY Time Seen by Provider: 11/09/19 13:48 Source of Information: Reports: Patient History Limitations: Reports: No Limitations - History of Present Illness INITIAL COMMENTS - FREE TEXT/NARRATIVE: HISTORY AND PHYSICAL: History of present illness: Patient is a 44-year-old female presents to the ED with complaint of a rash. Patient states that 2 days ago she had an echo and she developed a rash in the area where the ultrasound gel was. She states she woke up yesterday morning with a rash all over her trunks and extremities. She states it is very itchy and benadryl is not helping. She states it is not painful. She denies recent illness, fevers, chills, cough, oropharyngeal swelling. She states she was started on diltiazem 2 weeks ago. Review of systems: As per history of present illness and below otherwise all systems reviewed and negative. Past medical history: As per history of present illness and as reviewed below otherwise noncontributory. Surgical history: As per history of present illness and as reviewed below otherwise noncontributory. Social history: No reported history of drug or alcohol abuse. Family history: As per history of present illness and as reviewed below otherwise noncontributory. Physical exam: General: Patient sitting comfortably in no acute distress and nontoxic appearing HEENT: Atraumatic, normocephalic, pupils reactive, negative for conjunctival pallor or scleral icterus, mucous membranes moist, throat clear, neck supple, nontender, trachea midline. No meningeal signs. Lungs: Clear to auscultation, breath sounds equal bilaterally, chest nontender. Heart: S1S2, regular, negative for clicks, rubs, or overt murmur. Abdomen: Soft, nondistended, nontender. Negative for masses or hepatosplenomegaly. Negative for costovertebral tenderness. No rigidity, rebound , guarding. Pelvis: Stable nontender. Genitourinary: Deferred. Rectal: Deferred. Skin: [place] maculopapular rash on the trunk and extremities. Does not rahul, no central clearing. Extremities: Atraumatic, negative for cords or calf pain. Neurovascular unremarkable. Neuro: Awake, alert, oriented. Cranial nerves II through XII unremarkable. Cerebellum unremarkable. Motor and sensory unremarkable throughout. Exam nonfocal. Notes: Diagnostics: none Therapeutics: Solumedrol 125mg IM Prescriptions: Medrol dosepak Impression: Pruritic rash Plan: Take medication as prescribed You may continue benadryl as needed Follow up with primary care provider Return to ED as needed as discussed Definitive disposition and diagnosis as appropriate pending reevaluation and review of above. - Related Data Allergies Allergy/AdvReac Type Severity Reaction Status Date / Time sulfamethoxazole Allergy Hives Verified 11/09/19 13:44 [From Bactrim] trimethoprim [From Bactrim] Allergy Hives Verified 11/09/19 13:44 contrast dye Allergy Rash Uncoded 11/09/19 13:44 Home Meds: Home Meds Citalopram Hydrobromide [Celexa] 20 mg PO DAILY 08/19/19 [History] Cyclobenzaprine [Flexeril] 10 mg PO TID PRN 08/19/19 [History] Naproxen 500 mg PO DAILY 08/19/19 [History] Potassium Chloride [Klor-Con M20] 20 meq PO DAILY 08/19/19 [History] Diltiazem HCl [Cardizem LA] 180 mg PO DAILY 11/09/19 [History] methylPREDNISolone [Medrol] 4 mg PO ASDIRECTED #1 tab.ds.pk 11/09/19 [Rx] Past Medical History - Past Health History Medical/Surgical History: Denies Medical/Surgical History HEENT History: Reports: None Cardiovascular History: Reports: Other (See Below) Other Cardiovascular History: palpitations Respiratory History: Reports: None Gastrointestinal History: Reports: None Genitourinary History: Reports: None [employer] History: Reports: Endometriosis, , Other (See Below) Other [employer] History: ovarian cysts Musculoskeletal History: Reports: None Neurological History: Reports: Migraines Psychiatric History: Reports: Anxiety Endocrine/Metabolic History: Reports: None Hematologic History: Reports: None Immunologic History: Reports: None Oncologic (Cancer) History: Reports: None Dermatologic History: Reports: None - Infectious Disease History Infectious Disease History: Reports: Chicken Pox - Past Surgical History GI Surgical History: Reports: Appendectomy, Cholecystectomy Female Surgical History: Reports: Other (See Below) Other Female Surgeries/Procedures: ovarian laparoscopy Social & Family History - Family History Family Medical History: Noncontributory - Caffeine Use Caffeine Use: Reports: Soda ED ROS GENERAL - Review of Systems Review Of Systems: Comprehensive ROS is negative, except as noted in HPI. ED EXAM, SKIN/RASH Exam: See Below (See dictation) Course - Vital Signs Last Recorded V/S: Last Vital Signs Temp 97.3 F 11/09/19 13:46 Pulse 98 11/09/19 13:46 Resp 18 11/09/19 13:46 BP 149/78 H 11/09/19 13:46 Pulse Ox 97 11/09/19 13:46 - Orders/Labs/Meds Meds: Medications Discontinued Medications Generic Name Dose Route Start Last Admin Trade Name Freq PRN Reason Stop Dose Admin Methylprednisolone Sodium Succinate 125 mg 11/09/19 13:59 Solu-Medrol IM 11/09/19 14:00 ONETIME ONE Departure - Departure Time of Disposition: 14:05 Disposition: Home, Self-Care 01 Condition: Good Clinical Impression: Pruritic rash - Discharge Information Referrals: PCP,None [Primary Care Provider] - Forms: ED Department Discharge Additional Instructions: The following information is given to patients seen in the emergency department who are being discharged to home. This information is to outline your options for follow-up care. We provide all patients seen in our emergency department with a follow-up referral. The need for follow-up, as well as the timing and circumstances, are variable depending upon the specifics of your emergency department visit. If you don't have a primary care physician on staff, we will provide you with a referral. We always advise you to contact your personal physician following an emergency department visit to inform them of the circumstance of the visit and for follow-up with them and/or the need for any referrals to a consulting specialist. The emergency department will also refer you to a specialist when appropriate. This referral assures that you have the opportunity for follow-up care with a specialist. All of these measure are taken in an effort to provide you with optimal care, which includes your follow-up. Under all circumstances we always encourage you to contact your private physician who remains a resource for coordinating your care. When calling for follow-up care, please make the office aware that this follow-up is from your recent emergency room visit. If for any reason you are refused follow-up, please contact the [facility] Emergency Department at and asked to speak to the emergency department charge nurse. [facility] [address] [place] [address] [facility] [address] [place] [id number] Take medication as prescribed You may continue benadryl as needed Follow up with primary care provider Return to ED as needed as discussed Sepsis Event Note - Focused Exam Vital Signs: Vital Signs Temp Pulse Resp BP Pulse Ox 11/09/19 13:46 97.3 F 98 18 149/78 H 97 Date Exam was Performed: 11/09/19 Time Exam was Performed: 14:00
[2019-11-09] MEDS ORDERED: methylPREDNISolone Sodium Succinate 125 MG/2 ML SDV IM ONE (13:59)
[2019-11-09 20:31] VITALS: BP 136/70; PULSE 79
== END 2019-11-09 14:50 | disposition home or self-care (01) ==
LOC: MW.ED 13:30
DX: L29.9 Pruritus, unspecified (principal); Z91.041 Radiographic dye allergy status; Z79.899 Other long term (current) drug therapy
CPT/HCPCS: 96372; 99282; J2930; 99283

== ENCOUNTER 2020-11-02 16:58 | Emergency (ER) | payer BC, OTHER ==
[2020-11-02] MEDS ORDERED: Sodium Chloride 0.9% 1,000 ML IV ONE (17:31)
[2020-11-02] MEDS ORDERED: methylPREDNISolone Sodium Succinate 125 MG/2 ML SDV IVPUSH ONE (17:35)
[2020-11-02] MEDS ORDERED: diphenhydrAMINE 50 MG/ML SDV IVPUSH ONE (17:35)
[2020-11-02 18:26] LABS: BLOOD UREA NITROGEN,BUN 12 mg/dL (7.0-18.0); CARBON DIOXIDE,CO2 25.7 mmol/L (21.0-32.0); CHLORIDE,CL 103 mmol/L (98-107); GLUCOSE RANDOM 101 mg/dL (74-106); LIPASE 77 U/L (73-393); POTASSIUM,K 3.6 mmol/L (3.5-5.1); SODIUM,NA 138 mmol/L (136-145)
[2020-11-02] MEDS ORDERED: Iopamidol 755 Mg/ML 100 ML Bottle IVPUSH STA (18:41)
--- NOTE | 2020-11-02 19:19 | CT ---
INDICATION: Abdominal pain after moving a family member. Previous history of appendectomy and cholecystectomy. COMPARISON: CT of the abdomen and pelvis with contrast from 06/24/2017 TECHNIQUE: CT examination of the abdomen and pelvis was performed with the uneventful intravenous administration of 100 cc of Isovue 370 while 3 mm thick axial sections were obtained from the lung bases through the pubic symphysis. Oral contrast was not administered. Please note that all CT scans at this facility use dose modulation, iterative reconstruction, and/or weight-based dosing when appropriate to reduce radiation dose to as low as reasonably achievable. FINDINGS: In the abdomen, the liver has an elongated right lobe, findings of a Karie`s lobe, of no clinical significance. The liver is otherwise normal in appearance. The spleen, pancreas, and adrenals are normal in appearance. The kidneys are normal in appearance. Clips are again seen in the gall bladder fossa from cholecystectomy. There is no sign of biliary ductal dilatation. The abdominal aorta is normal in caliber with no sign of dilatation. There is no sign of retroperitoneal mass or adenopathy. The stomach, loops of small bowel, and right colon in the abdomen are normal in appearance. There is stable moderate diverticulosis of the colon in the splenic flexure and mild diverticulosis of the descending colon with no sign of diverticulitis. There is a moderate sized midline mid abdominal ventral wall hernia containing only fat, increased in size during the interval, previously small. The hernia sac previously measured 3.7 x 1.7 centimeters and now measures 5.3 by 3.1 centimeters. The neck of the hernia has increased in size from 1.6 centimeters to 2.7 centimeters. There is a stable tiny periumbilical hernia containing only fat. In the pelvis, the appendix is nonvisualized, but there is no sign of an inflammatory process in the area of the appendix. The previously described mesenteric adenitis is no longer evident, with resolution of the previously seen inflammatory stranding in the mesenteric fat adjacent to the cecum and resolution of previously seen mildly prominent lymph nodes. There is stable moderate proximal sigmoid diverticulosis without evidence of diverticulitis. The loops of small bowel and colon in the pelvis are otherwise normal in appearance. The left ovary has a stable 1.9 centimeter low-density region consistent with a cyst. The uterus and right adnexal region are normal in appearance. The urinary bladder is normal in appearance. There is no sign of pelvic or inguinal mass or adenopathy. There is no sign of free air or free fluid in the abdomen or pelvis. There is a nodule in the posterior-medial right lung base with central calcification, measuring 7 millimeters in diameter, consistent with a partially calcified granuloma, requiring no further follow-up. There is moderate L5-S1 disc degenerative disease. There is moderate bilateral lateral disc bulging and posterior osteophytic ridging extending into the neural foramina, appearing to impinge upon both L5 nerve roots. IMPRESSION: CT of the abdomen shows an increase in size of the fat containing midline mid abdominal ventral hernia, now moderate in size. Stable satisfactory appearance status post cholecystectomy with no sign of biliary ductal dilatation. Stable diverticulosis of the left colon in the abdomen with no sign of diverticulitis. CT of the pelvis shows stable moderate proximal sigmoid diverticulosis with no sign of diverticulitis. Stable 1.9 centimeter left ovarian cyst. Resolution of previously seen mesenteric adenitis adjacent to the cecum. Please note that all CT scans at this facility use dose modulation, iterative reconstruction, and/or weight-based dosing when appropriate to reduce radiation dose to as low as reasonably achievable. Dictated by Lisandro Rhoades MD @ Nov 02 2020 7:03PM Signed by Dr. Lisandro Rhoades @ Nov 02 2020 7:19PM
--- NOTE | 2020-11-02 19:30 | EDM.PDOC ---
ED HPI GENERAL MEDICAL PROBLEM - General Chief Complaint: Abdominal Pain Stated Complaint: ABDOMINAL PAIN Time Seen by Provider: 11/02/20 17:07 Source of Information: Reports: Patient History Limitations: Reports: No Limitations - History of Present Illness INITIAL COMMENTS - FREE TEXT/NARRATIVE: HISTORY AND PHYSICAL: History of present illness: Patient is a 45-year-old female resents emergency room today with concern of a painful mass of her right lower quadrant that occurred shortly after she had been helping her mother move in bed. Patient states that she had relax and thought the mass would go away and become nontender, but she states that she has had an increase in fullness of this area and more significant pain that she is having a hard time moving. Patient denies ever having this occur before. Patient denies any associative symptoms. Patient has a history of appendectomy and cholecystectomy but denies any surgeries. Patient denies fever, chills, chest pain, shortness of breath, or cough. Denies headache, neck stiff ness, change in vision, syncope, or near syncope. Denies nausea, vomiting, diarrhea, constipation, or dysuria. Has not noted any blood in urine or stool. Patient has been eating and drinking appropriately. Review of systems: As per history of present illness and below otherwise all systems reviewed and negative. Past medical history: As per history of present illness and as reviewed below otherwise noncontributory. Surgical history: As per history of present illness and as reviewed below otherwise noncontributory. Social history: See social history for further information Family history: As per history of present illness and as reviewed below otherwise noncontributory. Physical exam: General: Patient is alert, oriented, and in no acute distress. Patient laying comfortably on exam table. It is stable and reviewed by me. HEENT: Atraumatic, normocephalic, pupils equal and reactive bilaterally, negative for conjunctival pallor or scleral icterus, mucous membranes moist, TMs normal bilaterally, throat clear, neck supple, nontender, trachea midline. No drooling or trismus noted. No meningeal signs. No hot potato voice noted. Lungs: Clear to auscultation, breath sounds equal bilaterally, chest nontender. Heart: S1S2, regular rate and rhythm without overt murmur Abdomen: There is a 4cm by 3cm very tender mass of the abdominal wall of the RUQ. I was unable to fully assess this area due to patinet discomfort. Otherwise, Soft, nondistended, nontender. Negative for masses or hepatosplenomegaly. Negative for costovertebral tenderness. Pelvis: Stable nontender. Genitourinary: Deferred. Rectal: Deferred. Skin: Intact, warm, dry. No lesions or rashes noted. Extremities: Atraumatic, negative for cords or calf pain. Neurovascular unremarkable. Neuro: Awake, alert, oriented. Cranial nerves II through XII unremarkable. Cerebellum unremarkable. Motor and sensory unremarkable throughout. Exam nonfocal. Notes: Patient was placed in slight Trendelenburg position with spontaneous resolution of hernia during completion of diagnostics. Abdominal pain has resolved and no longer able to feel the abdominal wall mass on exam. Corrected Calcium is 8.1 but asymptomatic. Discussed taking TUMS OTC the next 1- 2 days with repeat labwork with her PCP. Signs and symptoms that would prompt return to the ED thoroughly discussed with patient. Discussed once for follow-up with her primary care provider and general surgery if she decides to have the hernia further evaluated for possible repair. Voices understanding and is agreeable to plan of care. Denies any further questions or concerns at this time. Diagnostics: CBC, CMP, UA, Abd/Pelvic CT w cont, Lipase, Hcg Therapeutics: Pain medication offered but patient declines Prescription: None Impression: Ventral hernia, uncomplicated, without obstruction Hypocalcemia, mild Plan: 1. You can alternate ibuprofen and Tylenol as directed for pain and discomfort. 2. Follow-up with your primary care provider and the general surgeon as discussed. Return to the ED as needed and as discussed. 3. Take TUMS over the next 1-2 days as discussed with follow up in regards to labwork today with your primary care provider as discussed. Definitive disposition and diagnosis as appropriate pending reevaluation and review of above. RUQ Pain Score (Numeric/FACES): 6 - Related Data Allergies Allergy/AdvReac Type Severity Reaction Status Date / Time sulfamethoxazole Allergy Hives Verified 11/02/20 17:15 [From Bactrim] trimethoprim [From Bactrim] Allergy Hives Verified 11/02/20 17:15 contrast dye Allergy Rash Uncoded 11/02/20 17:15 Home Meds: Home Meds Citalopram Hydrobromide [Celexa] 20 mg PO DAILY 08/19/19 [History] Cyclobenzaprine [Flexeril] 10 mg PO TID PRN 08/19/19 [History] Naproxen 500 mg PO DAILY 08/19/19 [History] Potassium Chloride [Klor-Con M20] 20 meq PO DAILY 08/19/19 [History] dilTIAZem HCL [Cardizem LA] 180 mg PO DAILY 11/09/19 [History] methylPREDNISolone [Medrol] 4 mg PO ASDIRECTED #1 tab.ds.pk 11/09/19 [Rx] Past Medical History - Past Health History Medical/Surgical History: Denies Medical/Surgical History HEENT History: Reports: None Cardiovascular History: Reports: Other (See Below) Other Cardiovascular History: palpitations Respiratory History: Reports: None Gastrointestinal History: Reports: None Genitourinary History: Reports: None GOLD LAYER History: Reports: Endometriosis, , Other (See Below) Other GOLD LAYER History: ovarian cysts Musculoskeletal History: Reports: None Neurological History: Reports: Migraines Psychiatric History: Reports: Anxiety Endocrine/Metabolic History: Reports: None Hematologic History: Reports: None Immunologic History: Reports: None Oncologic (Cancer) History: Reports: None Dermatologic History: Reports: None - Infectious Disease History Infectious Disease History: Reports: Chicken Pox - Past Surgical History GI Surgical History: Reports: Appendectomy, Cholecystectomy Female Surgical History: Reports: Other (See Below) Other Female Surgeries/Procedures: ovarian laparoscopy Social & Family History - Family History Family Medical History: No Pertinent Family History - Tobacco Use Packs/Tins Daily: 0.5 - Caffeine Use Caffeine Use: Reports: None - Recreational Drug Use Recreational Drug Use: No ED ROS GENERAL - Review of Systems Review Of Systems: Comprehensive ROS is negative, except as noted in HPI. ED EXAM, GENERAL - Physical Exam Exam: See Below (See dictation) Course - Vital Signs Last Recorded V/S: Last Vital Signs Temp 97.7 F 11/02/20 19:39 Pulse 70 11/02/20 19:39 Resp 18 11/02/20 19:39 BP 138/78 11/02/20 19:39 Pulse Ox 97 11/02/20 19:39 - Orders/Labs/Meds Labs: Laboratory Tests 11/02/20 11/02/20 11/02/20 Range/Units 17:38 17:38 17:38 WBC 5.09 (4.0-11.0) K/uL RBC 4.31 (4.30-5.90) M/uL Hgb 12.7 (12.0-16.0) g/dL Hct 39.2 (36.0-46.0) % MCV 91.0 (80.0-98.0) fL MCH 29.5 (27.0-32.0) pg MCHC 32.4 (31.0-37.0) g/dL RDW Std Deviation 43.7 (28.0-62.0) fl RDW Coeff of Ty 13 (11.0-15.0) % Plt Count 252 (150-400) K/uL MPV 10.20 (7.40-12.00) fL Neut % (Auto) 58.2 (48.0-80.0) % Lymph % (Auto) 33.2 (16.0-40.0) % [place] % (Auto) 8.6 (0.0-15.0) % Eos % (Auto) 0.0 (0.0-7.0) % Baso % (Auto) 0.0 (0.0-1.5) % Neut # (Auto) 3.0 (1.4-5.7) K/uL Lymph # (Auto) 1.7 (0.6-2.4) K/uL [place] # (Auto) 0.4 (0.0-0.8) K/uL Eos # (Auto) 0.0 (0.0-0.7) K/uL Baso # (Auto) 0.0 (0.0-0.1) K/uL Nucleated RBC % 0.0 /100WBC Nucleated RBCs # 0 K/uL Sodium 138 (136-145) mmol/L Potassium 3.6 (3.5-5.1) mmol/L Chloride 103 (98-107) mmol/L Carbon Dioxide 25.7 (21.0-32.0) mmol/L BUN 12 (7.0-18.0) mg/dL Creatinine 0.7 (0.6-1.0) mg/dL Est Cr Clr Drug Dosing 93.25 mL/min Estimated GFR (MDRD) > 60.0 ml/min Glucose 101 (74-106) mg/dL Calcium 8.3 L (8.5-10.1) mg/dL Total Bilirubin 0.2 (0.2-1.0) mg/dL AST 17 (15-37) IU/L ALT 24 (14-63) IU/L Alkaline Phosphatase 104 (46-116) U/L Total Protein 7.1 (6.4-8.2) g/dL Albumin 3.6 (3.4-5.0) g/dL Globulin 3.5 (2.6-4.0) g/dL Albumin/Globulin Ratio 1.0 (0.9-1.6) Lipase 77 (73-393) U/L HCG, Qual NEGATIVE (NEG) Urine Color Urine Appearance Urine pH (5.0-8.0) Ur Specific [place] (1.001-1.035) Urine Protein (NEGATIVE) mg/dL Urine Glucose (UA) (NEGATIVE) mg/dL Urine Ketones (NEGATIVE) mg/dL Urine Occult Blood (NEGATIVE) Urine Nitrite (NEGATIVE) Urine Bilirubin (NEGATIVE) Urine Urobilinogen (<2.0) EU/dL Ur Leukocyte Esterase (NEGATIVE) 11/02/20 Range/Units 18:50 WBC (4.0-11.0) K/uL RBC (4.30-5.90) M/uL Hgb (12.0-16.0) g/dL Hct (36.0-46.0) % MCV (80.0-98.0) fL MCH (27.0-32.0) pg MCHC (31.0-37.0) g/dL RDW Std Deviation (28.0-62.0) fl RDW Coeff of Ty (11.0-15.0) % Plt Count (150-400) K/uL MPV (7.40-12.00) fL Neut % (Auto) (48.0-80.0) % Lymph % (Auto) (16.0-40.0) % [place] % (Auto) (0.0-15.0) % Eos % (Auto) (0.0-7.0) % Baso % (Auto) (0.0-1.5) % Neut # (Auto) (1.4-5.7) K/uL Lymph # (Auto) (0.6-2.4) K/uL [place] # (Auto) (0.0-0.8) K/uL Eos # (Auto) (0.0-0.7) K/uL Baso # (Auto) (0.0-0.1) K/uL Nucleated RBC % /100WBC Nucleated RBCs # K/uL Sodium (136-145) mmol/L Potassium (3.5-5.1) mmol/L Chloride (98-107) mmol/L Carbon Dioxide (21.0-32.0) mmol/L BUN (7.0-18.0) mg/dL Creatinine (0.6-1.0) mg/dL Est Cr Clr Drug Dosing mL/min Estimated GFR (MDRD) ml/min Glucose (74-106) mg/dL Calcium (8.5-10.1) mg/dL Total Bilirubin (0.2-1.0) mg/dL AST (15-37) IU/L ALT (14-63) IU/L Alkaline Phosphatase (46-116) U/L Total Protein (6.4-8.2) g/dL Albumin (3.4-5.0) g/dL Globulin (2.6-4.0) g/dL Albumin/Globulin Ratio (0.9-1.6) Lipase (73-393) U/L HCG, Qual (NEG) Urine Color YELLOW Urine Appearance CLEAR Urine pH 5.5 (5.0-8.0) Ur Specific [place] 1.010 (1.001-1.035) Urine Protein NEGATIVE (NEGATIVE) mg/dL Urine Glucose (UA) NEGATIVE (NEGATIVE) mg/dL Urine Ketones NEGATIVE (NEGATIVE) mg/dL Urine Occult Blood NEGATIVE (NEGATIVE) Urine Nitrite NEGATIVE (NEGATIVE) Urine Bilirubin NEGATIVE (NEGATIVE) Urine Urobilinogen 0.2 (<2.0) EU/dL Ur Leukocyte Esterase NEGATIVE (NEGATIVE) Meds: Medications Discontinued Medications Generic Name Dose Route Start Last Admin Trade Name Freq PRN Reason Stop Dose Admin Diphenhydramine HCl 50 mg 11/02/20 17:35 11/02/20 17:57 Benadryl IVPUSH 11/02/20 17:36 50 mg ONETIME ONE Administration Sodium Chloride 1,000 mls @ 999 mls/hr 11/02/20 17:31 11/02/20 17:32 Normal Saline IV 11/02/20 18:31 999 mls/hr BOLUS ONE Administration Iopamidol 100 ml 11/02/20 18:41 11/02/20 18:45 Isovue-370 (76%) IVPUSH 11/02/20 18:42 100 ml ONETIME STA Administration Methylprednisolone Sodium Succinate 125 mg 11/02/20 17:35 11/02/20 17:57 Solu-Medrol IVPUSH 11/02/20 17:36 125 mg ONETIME ONE Administration Departure - Departure Time of Disposition: 19:29 Disposition: Home, Self-Care 01 Clinical Impression: Ventral hernia without obstruction or gangrene, Hypocalcemia - Discharge Information Referrals: PCP,None [Primary Care Provider] - Forms: ED Department Discharge Additional Instructions: The following information is given to patients seen in the emergency department who are being discharged to home. This information is to outline your options for follow-up care. We provide all patients seen in our emergency department with a follow-up referral. The need for follow-up, as well as the timing and circumstances, are variable depending upon the specifics of your emergency department visit. If you don't have a primary care physician on staff, we will provide you with a referral. We always advise you to contact your personal physician following an emergency department visit to inform them of the circumstance of the visit and for follow-up with them and/or the need for any referrals to a consulting specialist. The emergency department will also refer you to a specialist when appropriate. This referral assures that you have the opportunity for follow-up care with a specialist. All of these measure are taken in an effort to provide you with optimal care, which includes your follow-up. Under all circumstances we always encourage you to contact your private physician who remains a resource for coordinating your care. When calling for follow-up care, please make the office aware that this follow-up is from your recent emergency room visit. If for any reason you are refused follow-up, please contact the [facility] Emergency Department at and asked to speak to the emergency department charge nurse. [facility] [address] [place] [id number] [address] [facility] - General Surgery Professional [address], [address] [place] [address] 1. You can alternate ibuprofen and Tylenol as directed for pain and discomfort. 2. Follow-up with your primary care provider and the general surgeon as discussed. Return to the ED as needed and as discussed. 3. Take TUMS over the next 1-2 days as discussed with follow up in regards to labwork today with your primary care provider as discussed. Sepsis Event Note (ED) - Evaluation Sepsis Screening Result: No Definite Risk - Focused Exam Vital Signs: Vital Signs Temp Pulse Resp BP Pulse Ox 11/02/20 19:39 97.7 F 70 18 138/78 97 11/02/20 19:11 97.9 F 67 16 137/74 99 11/02/20 17:11 98 F 84 16 154/81 H 98
[2020-11-02 19:40] VITALS: BP 138/78; PULSE 70
== END 2020-11-02 19:41 | disposition home or self-care (01) ==
LOC: MW.ED 16:58
DX: K43.9 Ventral hernia without obstruction or gangrene (principal); E83.51 Hypocalcemia; Z88.2 Allergy status to sulfonamides; Z88.1 Allergy status to other antibiotic agents; Z91.041 Radiographic dye allergy status; Z79.899 Other long term (current) drug therapy; Z72.0 Tobacco use
CPT/HCPCS: 36415; 74177; 80053; 81003; 83690; 84703; 85025; 96374; 96375; 99284; J1200; J2930; J7030; Q9967; 99283

== ENCOUNTER 2021-01-11 09:36 | Day surgery (SDC) | payer BC, OTHER ==
[~2021-01-11 09:36] MED LIST: Lactated Ringers 1,000 ML IV SCH; Sodium Chloride 0.9% 10 ML SDV IV PRN; Sodium Chloride 0.9% 10 ML Syringe FLUSH PRN; Sodium Chloride 0.9% 2.5 ML Syringe FLUSH PRN; ceFAZolin 2 GM in Premix Bag 1 BAG IV ONE
[2021-01-11] MEDS ORDERED: Rocuronium Bromide 50 MG/5 ML Syringe ONE (09:39)
[2021-01-11] MEDS ORDERED: Dexamethasone 4 MG/ML 5 ML MDV ONE (09:39)
[2021-01-11] MEDS ORDERED: Ondansetron 4 MG/2 ML SDV ONE ×2 (09:39→10:33)
[2021-01-11] MEDS ORDERED: Ketorolac 30 MG/ML SDV ONE (09:39)
[2021-01-11] MEDS ORDERED: Propofol 200 MG/20 ML SDV ONE (09:40)
[2021-01-11] MEDS ORDERED: Bupivacaine 0.5% 30 ML SDV ONE ×3 (09:40→11:40)
[2021-01-11] MEDS ORDERED: fentaNYL 100 MCG/2 ML SDV ONE ×2 (09:40→12:11)
[2021-01-11] MEDS ORDERED: Morphine 10 MG/ML Syringe ONE (09:41)
[2021-01-11] MEDS ORDERED: Sugammadex Sodium 200 MG/2 ML VIAL ONE (09:44)
[2021-01-11] MEDS ORDERED: ceFAZolin 1 GM Vial ONE (10:10)
[2021-01-11] MEDS ORDERED: Scopolamine 1.5 MG Transdermal Patch ONE (10:33)
--- NOTE | 2021-01-11 11:00 | PCM.PREANE ---
Preanesthetic Assessment - Anesthesia/Transfusion/Family Hx Anesthesia History: Prior Anesthesia Without Reaction Family History of Anesthesia Reaction: No Transfusion History: No Prior Transfusion(s) Intubation History: Unknown - Review of Systems General: No Symptoms Pulmonary: No Symptoms Cardiovascular: No Symptoms Gastrointestinal: No Symptoms Neurological: No Symptoms Other: Reports: None - Physical Assessment NPO Status Date: 01/11/21 NPO Status Time: 00:00 Vital Signs: Last Vital Signs Temp 98.6 F 01/11/21 10:07 Pulse 62 01/11/21 10:07 Resp 16 01/11/21 10:07 BP 137/71 01/11/21 10:07 Pulse Ox 95 01/11/21 10:07 Height: 5 ft 5 in Weight: 251 lb ASA Class: 2 Mental Status: Alert & Oriented x3 Dentition: Reports: Normal Dentition Thyro-Mental Finger Breadths: 5 Mouth Opening Finger Breadths: 4 ROM/Head Extension: Full Lungs: Clear to Auscultation, Normal Respiratory Effort Cardiovascular: Regular Rate, Regular Rhythm - Lab Values: Laboratory Last Values Urine HCG, Qual NEGATIVE (NEGATIVE) 01/11/21 09:43 - Allergies Allergies/Adverse Reactions: Allergies Allergy/AdvReac Type Severity Reaction Status Date / Time sulfamethoxazole Allergy Hives Verified 01/11/21 10:01 [From Bactrim] trimethoprim [From Bactrim] Allergy Hives Verified 01/11/21 10:01 contrast dye Allergy Hives Uncoded 01/11/21 10:01 - Blood Blood Available: No - Anesthesia Plan Pre-Op Medication Ordered: Other - Acknowledgements Anesthesia Type Planned: General Anesthesia Pt an Appropriate Candidate for the Planned Anesthesia: Yes Alternatives and Risks of Anesthesia Discussed w Pt/Guardian: Yes Pt/Guardian Understands and Agrees with Anesthesia Plan: Yes PreAnesthesia Questionnaire - Past Health History Medical/Surgical History: Denies Medical/Surgical History HEENT History: Reports: Other (See Below) Other HEENT History: wears glasses/contacts Cardiovascular History: Reports: Arrhythmia, Hypertension, Other (See Below) Other Cardiovascular History: palpitations Respiratory History: Reports: None Gastrointestinal History: Reports: Hepatitis Other Gastrointestinal History: hepatitis B in [facility] was treated Genitourinary History: Reports: None H[employer] F[employer]ER History: Reports: Endometriosis, Musculoskeletal History: Reports: Back Pain, Chronic, Other (See Below) Other Musculoskeletal History: bulging lumbar disc Neurological History: Reports: Migraines Psychiatric History: Reports: Anxiety, Depression Endocrine/Metabolic History: Reports: Obesity/BMI 30+ Hematologic History: Reports: None Immunologic History: Reports: None Oncologic (Cancer) History: Reports: None Dermatologic History: Reports: Psoriasis Other Dermatologic History: "psoriasis on my scalp" - Infectious Disease History Infectious Disease History: Reports: Chicken Pox - Past Surgical History Head Surgeries/Procedures: Reports: None HEENT Surgical History: Reports: None Cardiovascular Surgical History: Reports: None Respiratory Surgical History: Reports: None GI Surgical History: Reports: Appendectomy, Cholecystectomy Female Surgical History: Reports: Salpingo-Oophorectomy, Other (See Below) Other Female Surgeries/Procedures: multiple laparoscopies for ovarian cysts & endometriosis, right S&O Endocrine Surgical History: Reports: None Neurological Surgical History: Reports: None Musculoskeletal Surgical History: Reports: None Oncologic Surgical History: Reports: None Dermatological Surgical History: Reports: None - SUBSTANCE USE Tobacco Use Status *Q: Never Tobacco User - HOME MEDS Home Medications: Home Meds Citalopram Hydrobromide [Celexa] 20 mg PO DAILY 08/19/19 [History] Cyclobenzaprine [Flexeril] 10 mg PO TID PRN 08/19/19 [History] Naproxen 500 mg PO DAILY PRN 08/19/19 [History] Metoprolol Succinate 50 mg PO DAILY 01/05/21 [History] - CURRENT (IN HOUSE) MEDS Current Meds: Current Medications Lactated Ringer's (Ringers, Lactated) 1,000 mls @ 125 mls/hr IV ASDIRECTED [facility] Last Admin: 01/11/21 10:01 Dose: 125 mls/hr Documented by: Sodium Chloride (Sodium Chloride 0.9% 10 Ml Syringe) 10 ml FLUSH ASDIRECTED PRN PRN Reason: Keep Vein Open Sodium Chloride (Sodium Chloride 0.9% 2.5 Ml Syringe) 2.5 ml FLUSH ASDIRECTED PRN PRN Reason: Keep Vein Open Sodium Chloride (Sodium Chloride 0.9% 10 Ml Sdv) 10 ml IV ASDIRECTED PRN PRN Reason: IV Use Discontinued Medications Bupivacaine HCl (Bupivacaine 0.5% 30 Ml Sdv) Confirm Administered Dose 30 ml .ROUTE .[facility]-MED ONE Stop: 01/11/21 09:41 Bupivacaine HCl (Bupivacaine 0.5% 30 Ml Sdv) Confirm Administered Dose 30 ml .ROUTE .STK-MED ONE Stop: 01/11/21 10:32 Cefazolin Sodium (Cefazolin 1 Gm Vial) Confirm Administered Dose 2 gm .ROUTE .STK-MED ONE Stop: 01/11/21 10:11 Dexamethasone (Dexamethasone 4 Mg/Ml 5 Ml Mdv) Confirm Administered Dose 20 mg .ROUTE .STK-MED ONE Stop: 01/11/21 09:40 Fentanyl (Fentanyl 100 Mcg/2 Ml Sdv) Confirm Administered Dose 100 mcg .ROUTE .STK-MED ONE Stop: 01/11/21 09:41 Cefazolin Sodium/Dextrose 2 gm (/ Premix) 50 mls @ 100 mls/hr IV ONETIME ONE Stop: 01/10/21 09:11 Acetaminophen (Ofirmev 1000 Mg/100 Ml) Confirm Administered Dose 100 mls @ as directed .ROUTE .ST-MED ONE Stop: 01/11/21 09:45 Ketorolac Tromethamine (Ketorolac 30 Mg/Ml Sdv) Confirm Administered Dose 30 mg .ROUTE .ST-MED ONE Stop: 01/11/21 09:40 Lidocaine HCl (Lidocaine 1% 5 Ml Sdv) Confirm Administered Dose 5 ml .ROUTE . ST-MED ONE Stop: 01/11/21 09:40 Morphine Sulfate (Morphine 10 Mg/Ml Syringe) Confirm Administered Dose 10 mg .ROUTE .STK-MED ONE Stop: 01/11/21 09:42 Ondansetron HCl (Ondansetron 4 Mg/2 Ml Sdv) Confirm Administered Dose 4 mg .ROUTE .STK-MED ONE Stop: 01/11/21 09:40 Ondansetron HCl (Ondansetron 4 Mg/2 Ml Sdv) Confirm Administered Dose 4 mg .ROUTE .STK-MED ONE Stop: 01/11/21 10:34 Propofol (Propofol 200 Mg/20 Ml Sdv) Confirm Administered Dose 200 mg .ROUTE .STK-MED ONE Stop: 01/11/21 09:41 Rocuronium Casar (Rocuronium Casar 50 Mg/5 Ml Syringe) Confirm Administered Dose 50 mg .ROUTE .STK-MED ONE Stop: 01/11/21 09:40 Scopolamine (Scopolamine 1.5 Mg Transdermal Patch) Confirm Administered Dose 1.5 mg .ROUTE .STK-MED ONE Stop: 01/11/21 10:34 Sugammadex Sodium (Sugammadex Sodium 200 Mg/2 Ml Vial) Confirm Administered Dose 200 mg .ROUTE .K-MED ONE Stop: 01/11/21 09:45
[2021-01-11] MEDS ORDERED: Metoclopramide 10 MG/2 ML SDV IVPUSH ONE (11:10)
[2021-01-11] MEDS ORDERED: Octyl 2-Cyanoacrylate 1 Tube ONE (11:47)
[2021-01-11] MEDS: fentaNYL 100 MCG/2 ML SDV IVPUSH PRN ×2 (12:13→12:20)
[2021-01-11] MEDS ORDERED: Metoclopramide 10 MG/2 ML SDV IVPUSH PRN (12:15)
[2021-01-11] MEDS ORDERED: Naloxone 0.4 MG/ML Syringe IVPUSH PRN (12:15)
[2021-01-11] MEDS ORDERED: Albuterol 0.083% 2.5 MG/3 ML Neb Soln NEB PRN (12:15)
[2021-01-11] MEDS ORDERED: Ondansetron 4 MG/2 ML SDV IVPUSH PRN (12:15)
[2021-01-11] MEDS ORDERED: Morphine 2 MG/ML SYRINGE IVPUSH PRN (12:15)
[2021-01-11] MEDS ORDERED: HYDROmorphone 2 MG/ML Syringe ONE (12:26)
--- NOTE | 2021-01-11 12:26 | PCM.POSTAN ---
POST ANESTHESIA ASSESSMENT - MENTAL STATUS Mental Status: Alert, Oriented - VITAL SIGNS Vital Signs: Last Vital Signs Temp 97.9 F 01/11/21 12:05 Pulse 62 01/11/21 12:20 Resp 10 L 01/11/21 12:20 BP 92/41 L 01/11/21 12:20 Pulse Ox 100 01/11/21 12:20 - RESPIRATORY Respiratory Status: Respiratory Rate WNL, Airway Patent, O2 Saturation Stable - CARDIOVASCULAR CV Status: Pulse Rate WNL, Blood Pressure Stable - GASTROINTESTINAL GI Status: No Symptoms - POST OP HYDRATION Hydration Status: Adequate & Stable
--- NOTE | 2021-01-11 12:27 | PCM48HPAN ---
Post Anesthesia Note - EVALUATION WITHIN 48HRS OF ANESTHETIC Vital Signs in Normal Range: Yes Patient Participated in Evaluation: Yes Respiratory Function Stable: Yes Airway Patent: Yes Cardiovascular Function Stable: Yes Hydration Status Stable: Yes Pain Control Satisfactory: Yes Nausea and Vomiting Control Satisfactory: Yes Mental Status Recovered: Yes Vital Signs: Last Vital Signs Temp 97.9 F 01/11/21 12:05 Pulse 62 01/11/21 12:20 Resp 10 L 01/11/21 12:20 BP 92/41 L 01/11/21 12:20 Pulse Ox 100 01/11/21 12:20
[2021-01-11] MEDS ORDERED: Acetaminophen/oxyCODONE 325-5 MG Tab PO PRN (12:28)
[2021-01-11] MEDS: HYDROmorphone 2 MG/ML Syringe IVPUSH PRN ×4 (12:29→12:59)
--- NOTE | 2021-01-11 12:31 | PCM.OPNOTE ---
- General Post-Op/Procedure Note Date of Surgery/Procedure: 01/11/21 Operative Procedure(s): Laparoscopic ventral hernia repair and lysis of abdominal adhesions Findings: Midline adhesions of omentum to abdominal wall. 7 x 11 cm hernia along upper midline Pre Op Diagnosis: ventral hernia Post-Op Diagnosis: same, abdominal adhesions Anesthesia Technique: General ET Tube Primary Surgeon: Velma Tavares Fluid Replacement, Intraop: 900 Output, Urine Amount: 180 EBL in mLs: 10 Condition: Good
[2021-01-11] MEDS ORDERED: Cyclobenzaprine 5 MG Tab PO SCH (14:00)
--- NOTE | 2021-01-11 15:49 | OR ---
SURGEON: VELMA TAVARES MD DATE OF PROCEDURE: 01/11/2021 PREOPERATIVE DIAGNOSIS: Ventral hernia. POSTOPERATIVE DIAGNOSES: 1. Reducible ventral hernia. 2. Intraabdominal adhesions. PROCEDURE PERFORMED: Laparoscopic lysis of adhesions and ventral hernia repair with mesh. PRIMARY SURGEON: Velma Tavares MD SECONDARY SURGEON: Isaac Joya MD ANESTHESIA: General endotracheal anesthesia. FLUIDS: 900 mL of crystalloid. ESTIMATED BLOOD LOSS: 10 mL. URINE OUTPUT: 180 mL. FINDINGS: 7 x 11 cm upper midline ventral hernia containing fat, intraabdominal adhesions along the lower midline. COMPLICATIONS: None. INDICATIONS: The patient is a 45-year-old female who presented with a symptomatic midline abdominal wall hernia. The patient and I discussed the need for repair. I will attempt this laparoscopically but convert to open should I be unable to perform it safely. We discussed the procedure, expected perioperative course, and the risks. She verbalized understanding and wishes to proceed. PROCEDURE IN DETAIL: The patient was brought to the OR and placed on the OR table in supine position. A time-out was completed verifying the patient's name, age, date of , allergies, and procedure to be performed. General endotracheal anesthesia was induced. The left arm was tucked to the patient's side, and a Ventura catheter placed. The abdomen was prepped and draped in usual standard fashion. I anesthetized an area 2 fingerbreadths below the left subcostal margin along the midclavicular line with 0.5% Marcaine plain. An 11 blade was used to make an incision in this area. I then gained entry into the left upper quadrant under direct visualization using a 5 mm, 0-degree scope. All layers of the abdominal wall were visualized upon entry. The abdomen was insufflated. I inspected the area underneath my initial trocar placement. No damage to surrounding structures was noted. I noted adhesions along the midline of the abdomen to the underlying omentum. A 12 mm trocar was placed in the left lateral abdomen under direct visualization. I then placed a 5 mm trocar under direct visualization in the left upper quadrant. The midline adhesions were taken down to just below the umbilicus with a harmonic scalpel and gentle blunt dissection. I inspected the umbilicus and underside of the fascia. I did not note any fascial defect or hernia at this site. The falciform ligament was taken down to the edge of the liver to facilitate placement of the mesh. Attention was then turned to the upper midline ventral hernia. The hernia sac was grasped from the underside and pulled down. The hernia sac and fat were then excised using a Harmonic scalpel device. This tissue was placed in an Endo Catch bag and removed through the 12 mm trocar site. It was sent to Pathology, labeled as hernia sac and contents. I then measured the fascial defect. It measured 7 cm wide x 11 cm long. A Ventralight ST mesh with Echo 2 device was brought into the field. It measured 10 x 15 cm. Before placing the mesh, stab incisions were made along the midline of the hernia sac, and the fascia was closed with [id number] sutures using a 0 Vicryl suture and a Trace- Edu device. The mesh was then brought in through the 12 mm trocar site. A Trace-Edu device was placed through the center of the defect and used to grasp the mesh and bring it up to the hernia site. Using an OptiFix AT, I then placed absorbable tacks circumferentially around the mesh. I used transfascial sutures through the center of the mesh as well as on the sides of the mesh and the inferior side of the mesh to provide secondary support. Photographs of this were taken. I anesthetized the peritoneum with 0.5% marcaine plain. The 12 mm trocar site was then removed, and the fascia at this site closed with a [id number] stitch using a Trace-Edu device. This suture was a 0 Vicryl suture. The 5 mm trocars were removed, and the abdomen allowed to desufflate. The 12 mm trocar site was closed with interrupted 3-0 Vicryl sutures in the deep subcutaneous fat and the skin was closed with a running 4-0 Monocryl suture. The 5 mm trocar sites were closed with interrupted 4-0 Monocryl suture. The stab incisions were covered in Dermabond. The trocar site incisions were covered in Dermabond and sterile dressings were applied to all. An abdominal binder was placed over the top of this. The patient was extubated and taken to PACU in stable condition. All counts were complete and correct at the end of the case. LEMEASH / MODL /[id number] MTDD
[2021-01-11 16:28] VITALS: BP 101/55; PULSE 62
== END 2021-01-11 16:35 | disposition home or self-care (01) ==
LOC: MW.SDS 09:36
PROVIDERS: ATTEND Surgery
DX: K43.9 Ventral hernia without obstruction or gangrene (principal); I10 Essential (primary) hypertension; E87.6 Hypokalemia; F17.210 Nicotine dependence, cigarettes, uncomplicated; E66.9 Obesity, unspecified; Z88.1 Allergy status to other antibiotic agents; Z88.8 Allergy status to other drugs, medicaments and biological substances; Z79.899 Other long term (current) drug therapy; Z98.890 Other specified postprocedural states; Z91.041 Radiographic dye allergy status; Z90.49 Acquired absence of other specified parts of digestive tract; Z68.41 Body mass index [BMI] 40.0-44.9, adult
CPT/HCPCS: 49652; 81025; 88302; A9270; C1781; J0131; J0690; J1100; J1170; J1885; J2270; J2704; J3010; J3490; J7120; 00790; J2405

== ENCOUNTER 2022-04-08 21:29 | Emergency (ER) | payer BC, OTHER ==
[2022-04-08 23:02] LABS: CARBON DIOXIDE,CO2 25.9 mmol/L (21.0-32.0); POTASSIUM,K 3.7 mmol/L (3.5-5.1)
[2022-04-08] MEDS ORDERED: diphenhydrAMINE 50 MG/ML SDV IVPUSH ONE (23:08)
[2022-04-08] MEDS ORDERED: Hydrocortisone Sodium Succinate 100 MG/2 ML SDV IVPUSH ONE (23:08)
[2022-04-08] MEDS ORDERED: EPINEPHrine 1 MG/ML SDV ONE (23:45)
[2022-04-08] MEDS ORDERED: Iopamidol 755 MG/ML 500 ML Multipack Bottle IVPUSH ONE (23:48)
[2022-04-09] MEDS ORDERED: EPINEPHrine 1 MG/ML SDV IM ONE (00:18)
[2022-04-09 00:50] VITALS: BP 137/71; PULSE 74
== END 2022-04-09 00:50 | disposition home or self-care (01) ==
LOC: MW.ED 21:29
DX: R50.82 Postprocedural fever (principal); I10 Essential (primary) hypertension; E66.9 Obesity, unspecified; Z68.41 Body mass index [BMI] 40.0-44.9, adult; Z88.2 Allergy status to sulfonamides; Z91.041 Radiographic dye allergy status; Z79.899 Other long term (current) drug therapy; Z90.49 Acquired absence of other specified parts of digestive tract; Z20.822 Contact with and (suspected) exposure to COVID-19
CPT/HCPCS: 36415; 71045; 74177; 80053; 81001; 83605; 83735; 85025; 87635; 96372; 96374; 96375; 99284; J0171; J1200; J1720; Q9967; 99283; U0002

== ENCOUNTER 2023-09-20 11:17 | Emergency (ER) | payer BC, OTHER ==
[2023-09-20] MEDS ORDERED: Sodium Chloride 0.9% 2.5 ML Syringe FLUSH PRN (11:25)
[2023-09-20] MEDS ORDERED: Sodium Chloride 0.9% 10 ML Syringe FLUSH PRN (11:25)
[2023-09-20] MEDS ORDERED: Aspirin 81 MG Tab.Chew PO STA (11:27)
[2023-09-20 11:38] LABS: BASOPHILS ABSOLUTE AUTO 0.02 K/uL (0.00-0.20); BASOPHILS PERCENT AUTO 0.2 % (0.0-1.0); EOSINOPHILS ABSOLUTE AUTO 0.01 K/uL (0.00-0.45); EOSINOPHILS PERCENT AUTO 0.1 % (0.0-6.0); HEMATOCRIT 40.8 % (37.0-47.0); HEMOGLOBIN 13.4 g/dL (12.0-16.0); IMMATURE GRAN ABSOLUTE AUTO 0.02 K/uL (0.00-0.05); IMMATURE GRAN PERCENT AUTO 0.2 % (0.0-0.4); LYMPHOCYTES ABSOLUTE AUTO 2.22 K/uL (1.00-4.80); LYMPHOCYTES PERCENT AUTO 23.8 % (24.0-44.0); MEAN CORPUSCULAR HEMOGLOBIN 29.8 pg (28.0-32.0); MEAN CORPUSCULAR HGB CONC 32.8 g/dL (32.0-36.0); MEAN CORPUSCULAR VOLUME 90.9 fL (83.0-99.0); MEAN PLATELET VOLUME 9.5 fL (9.4-12.3); MONOCYTES ABSOLUTE AUTO 0.55 K/uL (0.00-0.80); MONOCYTES PERCENT AUTO 5.9 % (0.0-8.0); NEUTROPHILS ABSOLUTE AUTO 6.51 K/uL (1.80-7.70); NEUTROPHILS PERCENT AUTO 69.8 % (41.0-71.0); PLATELET COUNT,PLT 268 K/uL (150-400); RED BLOOD CELL COUNT 4.49 M/uL (4.10-5.30); WHITE BLOOD CELL COUNT,WBC 9.33 K/uL (3.9-11.3)
[2023-09-20 12:01] VITALS: PULSE 71
[2023-09-20 12:11] LABS: A/G RATIO 0.9 (0.9-1.6); ALBUMIN 3.8 g/dL (3.4-5.0); BILIRUBIN TOTAL 0.4 mg/dL (0.2-1.0); CALCIUM 8.9 mg/dL (8.5-10.1); CARBON DIOXIDE,CO2 25.4 mmol/L (21.0-32.0); CREATININE 0.8 mg/dL (0.6-1.0); EST CRCL DRUG DOSING (CG) 79.07 mL/min; MAGNESIUM 2.1 mg/dL (1.8-2.4); PROTEIN TOTAL,TP 7.9 g/dL (6.4-8.2)
[2023-09-20 12:38] LABS: CORONAVIRUS COVID-19 NAA NEGATIVE (NEGATIVE); INFLUENZA A NAA NEGATIVE (NEGATIVE); INFLUENZA B NAA NEGATIVE (NEGATIVE); RESPIRATORY SYNCYTIAL VIR NAA NEGATIVE (NEGATIVE)
[2023-09-20 19:53] VITALS: BP 154/62
== END 2023-09-20 13:30 | disposition home or self-care (01) ==
LOC: MW.ED 11:17
DX: R07.9 Chest pain, unspecified (principal); I10 Essential (primary) hypertension; E66.9 Obesity, unspecified; Z68.39 Body mass index [BMI] 39.0-39.9, adult; Z88.2 Allergy status to sulfonamides; Z91.041 Radiographic dye allergy status; Z79.899 Other long term (current) drug therapy; Z90.49 Acquired absence of other specified parts of digestive tract; Z20.822 Contact with and (suspected) exposure to COVID-19
CPT/HCPCS: 0241U; 36415; 71046; 80053; 83690; 83735; 84484; 84703; 85025; 93005; 99285; A9270; J3490